=== PATIENT | male | born 1935 | race Caucasian/White ===

== ENCOUNTER 2023-05-12 16:28 | Emergency (ER) | payer OTHER, SELFPAY ==
[2023-05-12 16:33] VITALS: BP 219/99
[2023-05-12 16:52] LABS: % Basophils 0.6 % (0-2); % Eosinophils 2.1 % (0-6); % Immature Granulocytes 0.2 % (0-0.5); % Lymphocytes 32.9 % (20.5-51.1); % Neutrophils 56.2 % (42.2-75.2); Absolute Eosinophils 0.1 10^3/uL (0-0.7); Absolute Lymphocytes 2.2 10^3/uL (1.2-3.4); Absolute Monocytes 0.5 10^3/uL (0.1-0.6); Absolute Neutrophils 3.7 10^3/uL (1.4-6.5); Hematocrit 41.1 % (39.0-52.0); Mean Corp Hgb Conc. 34.1 g/dL (33.0-37.0); Mean Corpuscular Hgb 32.9 pg (27.0-31.0); Mean Corpuscular Volume 96.7 fL (80.0-94.0); Mean Platelet Volume 9.4 fL (7.4-10.4); Nucleated Red Blood Cells % 0 % (-); Platelet Count 204 10^3/uL (130-400); Red Blood Cell Count 4.25 10^6/uL (4.70-6.10); Red Cell Dist. Width 13.2 % (11.5-14.5); White Blood Cell Count 6.5 10^3/uL (4.8-10.8)
[2023-05-12 17:09] LABS: ALT (SGPT) 32 U/L (0-50); AST (SGOT) 48 U/L (17-59); Albumin 4.5 g/dl (3.5-5.0); Alkaline Phosphatase 75 U/L (38-126); Blood Urea Nitrogen 27 mg/dl (9-20); Calcium 9.6 mg/dl (8.4-10.2); Carbon Dioxide 30 mmol/L (22-30); Chloride 102 mmol/L (98-107); Estimated Creatinine Clearance 56 ml/min; Glucose 79 mg/dl (70-99); Potassium 4.1 mmol/L (3.5-5.1); Sodium 138 mmol/L (135-145); Total Bilirubin 0.8 mg/dl (0.2-1.3); Total Protein 7.1 g/dl (6.3-8.2); eGFR > 60.00
[2023-05-12 17:20] LABS: Troponin I 0.016 ng/ml
[2023-05-12 18:09] VITALS: BP 212/109
[2023-05-12 19:00] VITALS: BP 200/91
--- NOTE | 2023-05-12 19:17 | ED.GENMED ---
History of Present Illness
General
Chief Complaint: Blood Pressure Problem
Source: patient
Exam Limitations: none
Time Seen by Provider: 05/12/23 18:41
Travel History
Have you had any contact with someone who has COVID-19?: No
Do you have any symptoms of coronavirus? Fever > 100 degrees, chills, cough, shortness of breath, sore throat, loss of taste or smell, muscle aches, or headache?: No
History of Present Illness
History of Present Illness:
This is a 87 year old male that comes in with c/o hypertension. States that today his BP was elevated and he felt a little weak.States that he also has urinary frequency. States that he also felt lightheaded. Denies any fever, chills chest pain,
SOB, abd pain, nausea, vomiting, diarrhea, headache, dizziness, urinary burning.
Past History
Past History
ED Past Medical History: Cancer, HTN, Hypercholesterolemia and Other
ED Past Surgical History: Tonsilectomy and Other (cataracts, Left hernia)
Social History
Tobacco: Former smoker
Alcohol: None
Personal:
Living: snf ([facility])
Review of Systems
Review of Systems
All Other Systems: ROS reviewed and negative except as documented in HPI and ROS
Constitutional: Reports no symptoms; Denies fever or chills
EENT: Reports no symptoms
Respiratory: Reports no symptoms; Denies cough or trouble breathing
Cardiac: Reports no symptoms; Denies chest pain
ABD/GI: Reports no symptoms; Denies abdominal pain, nausea, vomiting or diarrhea
: Reports frequency and urgency; Denies dysuria
Musculoskeletal: Reports no symptoms
Skin: Reports no symptoms
Neurological: Reports other (Lightheaded); Denies dizzy or headache
Psychiatric: Reports no symptoms
Phy Exam
General Physical Exam
General Presentation: well appearing and no apparent distress
General age: appears stated age
General Skin: warm and dry
General Habitus: elderly
General Mental: alert
General Hydration: appears well hydrated
ENT Exam
ENT Exam: TM's normal, pharynx normal and neck supple
Eye Exam
Eye Exam: EOMI
Cardiovascular Exam
Cardiovascular Exam: regular rate/rhythm and normal peripheral pulses
Pulmonary Exam
Pulmonary Exam: lungs clear, no respiratory distress, no rales, chest non tender, no crackles, no rhonchi, no wheezing and no cough
Gastrointestinal Exam
Gastrointestinal Exam: normal bowel sounds, non tender, soft, no organomegaly, no pulsatile mass and non distended
Musculoskeletal Exam
Musculoskeletal Exam: full ROM and edema (Slight ankle edema nonpitting)
Skin Exam
Skin Exam: normal color, warm/dry, no rash and no petechia
Psychiatric Exam
Psychiatric Exam: normal mood/affect
Course
Orders/Labs/Results
Orders:
Orders
05/12/23 16:32
Electrocardiogram (*1) Urgent
Reason for Study: Chest Pain
Cardiac Monitoring- Treatment ONCE
EKG- Treatment ONCE
IV Insert/Care/Rem.- Treatment PRN
O2 Therapy [RESP] Urgent
Titrate/Wean O2 to maintain O2 sat greater than (%): 90
Special Instructions: Maintain sats >/=90%
Pulse Ox/spot Check [RESP] Urgent
Quantity: 1
Special Instructions: ON ROOM AIR
05/12/23 16:41
Complete Blood Count/With Diff Urgent
Comprehensive Metabolic Panel Urgent
Troponin I Urgent
05/12/23 19:17
HydrALAZINE [Apresoline] 5 mg IV NOW STA
05/12/23 19:31
Troponin I Urgent
Urinalysis Reflex To Culture Urgent
Date Specimen was Collected: 05/12/23
Time Specimen was Collected: 19:21
05/12/23 20:35
Lisinopril [Zestril] 10 mg PO NOW STA
Abnormal Lab Results
05/12/23
16:41
RBC 4.25 L 10^6/uL
(4.70-6.10)
MCV 96.7 H fL
(80.0-94.0)
MCH 32.9 H pg
(27.0-31.0)
BUN 27 H mg/dl
(9-20)
05/12/23 16:41
05/12/23 16:41
Dehydration. Troponin 0.016, Urine negative for infection.
Vital Signs
Initial and Last Documented VS:
Initial Vital Signs
Temp Pulse Resp
98.1 F 76 18
05/12/23 16:31 05/12/23 16:31 05/12/23 16:31
Last Documented Vital Signs
Temp Pulse Resp BP Pulse Ox
98.1 F 69 18 188/80 95
05/12/23 16:31 05/12/23 20:30 05/12/23 20:30 05/12/23 20:00 05/12/23 20:30
MDM/Problems Addressed
Differential Diagnosis Includes:
Hypertension,
MDM/Problems Addressed:
This is a 87 year old male that comes in with c/o hypertension. States that today his BP was elevated so they sent him in.
Will check labs and give Hypertensive medication.
back into see patient. Patient has no complaints. Patient BP at this time is 188/80. Will start patient on Lisinopril 10mg daily and patient can follow up with the family doctor. This may need to be increased depending on pateint response. Will
discharge Back to [facility].
Chronic conditions affecting care:
NA
Acute Exacerbation and/or Progression of Chronic Illness:
NA
*Pulse Oximetry
Patient hypoxic: no
*EKG
Interpreted by ED Provider?: Yes
Heart Rate: 64
Rate: normal
Rhythm: sinus and PAC's
[place]: normal axis
Interval: normal interval
QRS Pattern: normal QRS
Ischemia: no ischemia
*Extrusion Technician Interpretation
Rate: normal
Heart Rate: 94
Rhythm: sinus
*Critical Care Note
Total Time (30-74mins, 75-104mins- exclusive of procedures): Not Applicable
ED Attending Note
-
Portions of this chart may have been created with voice recognition software.� Occasional wrong word or��sound alike� substitutions may have occurred due to the inherent limitations of voice recognition software.
Discharge Plan
Departure
Patient Disposition: Home (Routine Discharge)
Patient with high blood pressure during this ER visit?: Yes
Condition: Good
Covid-19: Not Applicable
Discharge Problem:
Hypertension
Instructions: High Blood Pressure (DC), BLOOD PRESSURE
Prescriptions:
New
lisinopril 10 mg tablet
10 mg PO DAILY Qty: 15 0RF
No Action
ascorbic acid (vitamin C) [Vitamin C] 500 MG tablet
500 mg PO DAILY
magnesium oxide 500 MG tablet
500 mg PO DAILY
rosuvastatin [Crestor] 40 MG tablet
40 mg PO QPM
lutein 40 MG capsule
40 mg PO DAILY
cyanocobalamin (vitamin B-12) 1,000 MCG tablet
1,000 mcg PO DAILY
cholecalciferol (vitamin D3) 2,000 UNITS tablet
2,000 units PO DAILY
multivitamin with folic acid [Tab-A-Anne] 1 TABLET tablet
1 tab PO DAILY
sennosides-docusate sodium 1 TABLET tablet
1 tab PO BID 0RF
aspirin 81 mg Tablet,Chewable
81 mg PO DAILY
furosemide 20 mg tablet
20 mg PO MOWEFR
acetaminophen 325 MG tablet
650 mg PO Q6H PRN (Reason: mild pain/fever)
Referrals:
UNKNOWN - PT DOES,NOT KNOW [Family Provider] -
Activity Restrictions/Additional Instructions:
As discussed, patient blood work shows slight Dehydration. His Urine is negative for any infection. Patient has been given Medication here that helped to decrease his BP. You have also been given a prescription for Hypertension daily. Please have
patient follow up with the family doctor for recheck in the next 2-3 days and if needed he can increase his Medication to help control his BP. IF YOU HAVE ANY OTHER CONCERNS PLEASE RETURN TO THE EMERGENCY ROOM.
Interventions
Interventions:
*Risk Screen - Suicide Last Done: 05/12/23 16:57
*General Assessment Last Done: 05/12/23 16:57
*Neglect/Abuse Screening Last Done: 05/12/23 16:57
ED- Fall Risk Assessment Last Done: 05/12/23 16:42
*ED COVID-19 Vaccine History Last Done: 05/12/23 16:33
*Nursing Disposition Last Done: 05/12/23 19:33
ED- Cardiac Assessment Last Done: 05/12/23 16:42
ED- Neurological Assessment Last Done: 05/12/23 16:42
ED- Pulmonary Assessment Last Done: 05/12/23 16:42
[2023-05-12] MEDS: APRESOLINE 5 MG IV (19:27)
[2023-05-12 19:51] LABS: Urine Albumin Negative (Neg - Trace); Urine Bilirubin Negative (Negative); Urine Character Clear (Clear); Urine Color Yellow; Urine Glucose Negative (Negative); Urine Ketone Negative (Negative); Urine Leukocyte Negative (Negative); Urine Nitrite Negative (Negative); Urine Occult Blood Negative (Negative); Urine Specific Gravity 1.015 (<1.030); Urine Urobilinogen Negative (Neg - 1+)
[2023-05-12 20:00] VITALS: BP 188/80
[2023-05-12] MEDS: ZESTRIL 10 MG PO (20:46)
--- NOTE | 2023-05-14 14:29 | CM ---
Benjamin from [facility] requesting ED report. KEVIN faxed to [facility].
== END 2023-05-12 21:43 | disposition home or self-care (01) ==
LOC: EMR 16:28
PROVIDERS: Clinical Nurse Specialist Family Health; Emergency Medicine; EMERGENCY PHYSICIAN Emergency Medicine
DX: I10 Essential (primary) hypertension (principal); Z87.891 Personal history of nicotine dependence
CPT/HCPCS: 99284; 96374; 80053; 81003; 84484; 85025; 93005

== ENCOUNTER → 2023-07-01 09:32 | Outpatient (REF) | payer OTHER, SELFPAY ==
[2023-07-01 11:29] LABS: % Eosinophils 4.9 % (0-6); % Monocytes 10.7 % (1.7-9.3); % Neutrophils 49.4 % (42.2-75.2); Absolute Eosinophils 0.2 10^3/uL (0-0.7); Absolute Lymphocytes 1.3 10^3/uL (1.2-3.4); Absolute Monocytes 0.4 10^3/uL (0.1-0.6); Absolute Neutrophils 1.9 10^3/uL (1.4-6.5); Mean Corp Hgb Conc. 33.3 g/dL (33.0-37.0); Mean Corpuscular Hgb 33.3 pg (27.0-31.0); Mean Platelet Volume 10.1 fL (7.4-10.4); Nucleated Red Blood Cells % 0 % (-); Platelet Count 178 10^3/uL (130-400); Red Cell Dist. Width 13.4 % (11.5-14.5); White Blood Cell Count 3.9 10^3/uL (4.8-10.8)
[2023-07-01 11:44] LABS: ALT (SGPT) 21 U/L (0-50); AST (SGOT) 31 U/L (17-59); Albumin 3.5 g/dl (3.5-5.0); Alkaline Phosphatase 59 U/L (38-126); Blood Urea Nitrogen 25 mg/dl (9-20); Calcium 9.1 mg/dl (8.4-10.2); Carbon Dioxide 29 mmol/L (22-30); Chloride 107 mmol/L (98-107); Glucose 86 mg/dl (70-99); Magnesium 2.3 mg/dl (1.6-2.3); Potassium 4.4 mmol/L (3.5-5.1); Sodium 137 mmol/L (135-145); Total Bilirubin 0.3 mg/dl (0.2-1.3); Total Protein 5.7 g/dl (6.3-8.2); eGFR > 60.00
[2023-07-01 14:52] LABS: PSA, Total - Screen 0.31 ng/ml (0.0-4.0)
== END ==
LOC: OLABMERCHI 09:32
PROVIDERS: ATTENDING PHYSICIAN Nurse Practitioner Gerontology; FAMILY PHYSICIAN Hospitalist
DX: D64.9 Anemia, unspecified (principal); R94.4 Abnormal results of kidney function studies; E83.42 Hypomagnesemia; C61 Malignant neoplasm of prostate
CPT/HCPCS: 36415; 80053; 83735; 85025; G0103

== ENCOUNTER 2023-07-16 16:17 | Emergency (ER) | payer OTHER, SELFPAY ==
[2023-07-16 16:30] VITALS: BP 152/80
[2023-07-16 17:14] VITALS: BP 180/83
--- NOTE | 2023-07-16 17:18 | ED.GENMED ---
History of Present Illness
General
Chief Complaint: Blood Pressure Problem
Source: patient
Exam Limitations: none
Time Seen by Provider: 07/16/23 17:01
Nursing documentation reviewed up to this point in time: agreed with
Travel History
Have you had any contact with someone who has COVID-19?: No
Do you have any symptoms of coronavirus? Fever > 100 degrees, chills, cough, shortness of breath, sore throat, loss of taste or smell, muscle aches, or headache?: No
History of Present Illness
History of Present Illness:
Patient to ED for eval of elevated blood pressure readings. States he started on blood pressure medication approx 1 month ago. Blood pressure is intermittently high at times. BP reading ths AM was 200/100. Transported to ED via EMS. He has no
complaints.
Past History
Past History
ED Past Medical History: Cancer, HTN, Hypercholesterolemia and Other
ED Past Surgical History: Tonsilectomy and Other (cataracts, Left hernia)
Social History
Tobacco: Former smoker
Alcohol: None
Personal:
Living: skilled nursing ([facility])
Review of Systems
Review of Systems
Allergies reviewed?: Yes
All Other Systems: ROS reviewed and negative except as documented in HPI and ROS
Constitutional: Reports no symptoms
EENT: Reports no symptoms
Respiratory: Reports no symptoms
Cardiac: Reports no symptoms (Sent to ED for elevated BP readings.)
ABD/GI: Reports no symptoms
: Reports no symptoms
Musculoskeletal: Reports no symptoms
Skin: Reports no symptoms
Neurological: Reports no symptoms
Hematologic/Lymphatic: Reports no symptoms
Phy Exam
General Physical Exam
General Presentation: well appearing and no apparent distress
General age: appears stated age
General Skin: warm and dry
General Habitus: normal
General Mental: alert
Cardiovascular Exam
Cardiovascular Exam: regular rate/rhythm and no edema
Pulmonary Exam
Pulmonary Exam: lungs clear and no respiratory distress
Gastrointestinal Exam
Gastrointestinal Exam: normal bowel sounds, non tender, soft and no organomegaly
Musculoskeletal Exam
Musculoskeletal Exam: full ROM and neuro vasc intact
Skin Exam
Skin Exam: normal color, warm/dry and no rash
Psychiatric Exam
Psychiatric Exam: normal mood/affect
Course
Orders/Labs/Results
Orders:
Orders
07/16/23 16:34
ECG [Electrocardiogram (*1)] Urgent
Reason for Study: Vertigo / Dizzy
EKG- Treatment ONCE
07/16/23 17:30
Complete Blood Count/With Diff Urgent
Comprehensive Metabolic Panel Urgent
Troponin I Urgent
07/16/23 17:49
Urinalysis Reflex To Culture Urgent
Date Specimen was Collected: 07/16/23
Time Specimen was Collected: 17:44
Abnormal Lab Results
07/16/23
17:30
RBC 4.32 L 10^6/uL
(4.70-6.10)
MCV 95.6 H fL
(80.0-94.0)
MCH 32.6 H pg
(27.0-31.0)
Neutrophils % 75.3 H %
(42.2-75.2)
Lymphocytes % 17.4 L %
(20.5-51.1)
Carbon Dioxide 31 H mmol/L
(22-30)
BUN 26 H mg/dl
(9-20)
07/16/23 17:30
07/16/23 17:30
Vital Signs
Initial and Last Documented VS:
Initial Vital Signs
Temp Pulse Resp BP Pulse Ox
98.3 F 76 20 152/80 99
07/16/23 16:30 07/16/23 16:30 07/16/23 16:30 07/16/23 16:30 07/16/23 16:30
Last Documented Vital Signs
Temp Pulse Resp BP Pulse Ox
98.3 F 65 14 173/77 95
07/16/23 16:30 07/16/23 18:30 07/16/23 18:30 07/16/23 18:00 07/16/23 18:30
*Critical Care Note
Total Time (30-74mins, 75-104mins- exclusive of procedures): Not Applicable
Update Note
Update Note:
BP maintaining 160-170/70-80. He remains asymptomatic. WIll increase lisinopril to 20mg daily. He is discharged home. Given instructions on s/s to return to ED and he is agreeable to plan. Case discussed with dr. paul.
ED Attending Note
-
Portions of this chart may have been created with voice recognition software.� Occasional wrong word or��sound alike� substitutions may have occurred due to the inherent limitations of voice recognition software.
Discharge Plan
Departure
Patient Disposition: Home (Routine Discharge)
Date of Disposition: 07/16/23
Time of Disposition: 18:47
Patient with high blood pressure during this ER visit?: No
Condition: Good
Covid-19: Not Applicable
Discharge Problem:
Elevated blood pressure reading
Instructions: High Blood Pressure (DC)
Prescriptions:
New
lisinopril 20 mg tablet
20 mg PO DAILY Qty: 14 0RF
No Action
ascorbic acid (vitamin C) [Vitamin C] 500 MG tablet
500 mg PO DAILY
magnesium oxide 500 MG tablet
500 mg PO DAILY
rosuvastatin [Crestor] 40 MG tablet
40 mg PO QPM
lutein 40 MG capsule
40 mg PO DAILY
cyanocobalamin (vitamin B-12) 1,000 MCG tablet
1,000 mcg PO DAILY
cholecalciferol (vitamin D3) 2,000 UNITS tablet
2,000 units PO DAILY
multivitamin with folic acid [Tab-A-Anne] 1 TABLET tablet
1 tab PO DAILY
sennosides-docusate sodium 1 TABLET tablet
1 tab PO BID 0RF
aspirin 81 mg Tablet,Chewable
81 mg PO DAILY
furosemide 20 mg tablet
20 mg PO MOWEFR
acetaminophen 325 MG tablet
650 mg PO Q6H PRN (Reason: mild pain/fever)
lisinopril 10 mg tablet
10 mg PO DAILY Qty: 15 0RF
Referrals:
Naty Ruiz, [Family Provider] - Follow up in 2-3 days
Activity Restrictions/Additional Instructions:
Increase your Lisinopril to 20mg daily. Have your blood pressure rechecked next week.
Interventions
Interventions:
*Risk Screen - Suicide Last Done: 07/16/23 18:15
*General Assessment Last Done: 07/16/23 18:13
*Neglect/Abuse Screening Last Done: 07/16/23 18:13
*ED COVID-19 Vaccine History Last Done: 07/16/23 16:30
ED- Cardiac Assessment Last Done: 07/16/23 18:15
ED- Neurological Assessment Last Done: 07/16/23 18:15
ED- Pulmonary Assessment Last Done: 07/16/23 18:15
Discharge Date and Time
Print Language: MONTSERRATIAN
[2023-07-16 17:39] LABS: % Basophils 0.4 % (0-2); % Eosinophils 0.5 % (0-6); % Immature Granulocytes 0.3 % (0-0.5); % Lymphocytes 17.4 % (20.5-51.1); % Monocytes 6.1 % (1.7-9.3); % Neutrophils 75.3 % (42.2-75.2); Absolute Lymphocytes 1.3 10^3/uL (1.2-3.4); Absolute Monocytes 0.5 10^3/uL (0.1-0.6); Absolute Neutrophils 5.8 10^3/uL (1.4-6.5); Hematocrit 41.3 % (39.0-52.0); Hemoglobin 14.1 g/dL (13.0-18.0); Mean Corp Hgb Conc. 34.1 g/dL (33.0-37.0); Mean Corpuscular Hgb 32.6 pg (27.0-31.0); Mean Corpuscular Volume 95.6 fL (80.0-94.0); Mean Platelet Volume 9.2 fL (7.4-10.4); Nucleated Red Blood Cells % 0 % (-); Platelet Count 192 10^3/uL (130-400); Red Blood Cell Count 4.32 10^6/uL (4.70-6.10); Red Cell Dist. Width 13.1 % (11.5-14.5); White Blood Cell Count 7.7 10^3/uL (4.8-10.8)
[2023-07-16 17:49] VITALS: BP 179/74
[2023-07-16 17:55] LABS: ALT (SGPT) 29 U/L (0-50); AST (SGOT) 39 U/L (17-59); Albumin 4.4 g/dl (3.5-5.0); Alkaline Phosphatase 71 U/L (38-126); Blood Urea Nitrogen 26 mg/dl (9-20); Carbon Dioxide 31 mmol/L (22-30); Chloride 101 mmol/L (98-107); Glucose 87 mg/dl (70-99); Potassium 4.3 mmol/L (3.5-5.1); Sodium 139 mmol/L (135-145); Total Bilirubin 0.5 mg/dl (0.2-1.3); Total Protein 6.9 g/dl (6.3-8.2); eGFR > 60.00
[2023-07-16 18:00] VITALS: BP 173/77
[2023-07-16 18:03] LABS: Troponin I 0.017 ng/ml
[2023-07-16 18:29] LABS: Urine Albumin Negative (Neg - Trace); Urine Bilirubin Negative (Negative); Urine Character Slightly Cloudy (Clear); Urine Color Yellow; Urine Glucose Negative (Negative); Urine Ketone Negative (Negative); Urine Leukocyte Negative (Negative); Urine Nitrite Negative (Negative); Urine Occult Blood Negative (Negative); Urine Urobilinogen Negative (Neg - 1+)
== END 2023-07-16 22:32 | disposition home or self-care (01) ==
LOC: EMR 16:17
PROVIDERS: Nurse Practitioner; EMERGENCY PHYSICIAN Emergency Medicine; FAMILY PHYSICIAN Hospitalist
DX: R03.0 Elevated blood-pressure reading, without diagnosis of hypertension (principal); I10 Essential (primary) hypertension; E78.00 Pure hypercholesterolemia, unspecified; Z87.891 Personal history of nicotine dependence
CPT/HCPCS: 99283; 80053; 81003; 84484; 85025; 93005

== ENCOUNTER → 2023-07-29 11:23 | Outpatient (REF) | payer OTHER, SELFPAY ==
[2023-07-29 12:10] LABS: Blood Urea Nitrogen 22 mg/dl (9-20); Calcium 9.6 mg/dl (8.4-10.2); Carbon Dioxide 32 mmol/L (22-30); Chloride 103 mmol/L (98-107); Glucose 108 mg/dl (70-99); Potassium 4.4 mmol/L (3.5-5.1); Sodium 142 mmol/L (135-145); eGFR > 60.00
== END ==
LOC: OLABMERCHI 11:23
PROVIDERS: ATTENDING PHYSICIAN Nurse Practitioner Gerontology; FAMILY PHYSICIAN Hospitalist
DX: R94.4 Abnormal results of kidney function studies (principal)
CPT/HCPCS: 36415; 80048

== ENCOUNTER → 2023-08-05 11:24 | Outpatient (REF) | payer OTHER, SELFPAY | LOC: RAD 11:24 | PROVIDERS: ATTENDING PHYSICIAN Surgery Vascular Surgery; FAMILY PHYSICIAN Hospitalist | DX: I65.29 Occlusion and stenosis of unspecified carotid artery (principal) | CPT/HCPCS: 70496; 70498; Q9967 ==

== ENCOUNTER 2023-10-31 16:19 | Inpatient (IN) | payer OTHER, SELFPAY ==
[2023-10-31] VITALS (12 sets, daily range): BP systolic 100–203; BP diastolic 57–90; BMI 21.3
--- NOTE | 2023-10-31 10:19 | ED.GENMED ---
History of Present Illness
General
Chief Complaint: Change in Mental Status
Source: patient, ambulance crew and halfway
Exam Limitations: none
Time Seen by Provider: 10/31/23 09:56
Nursing documentation reviewed up to this point in time: agreed with
History of Present Illness
History of Present Illness:
88-year-old male presenting to the emergency department from his nursing facility with concerns of increased weakness fatigue confusion this morning no specific complaints upon arrival here apparently has had some degree of back pain intermittently
as well. Denies any specific chest pain shortness of breath nausea vomiting recent illness.
Past History
Past History
ED Past Medical History: Cancer, HTN, Hypercholesterolemia and Other
ED Past Surgical History: Tonsilectomy and Other (cataracts, Left hernia)
Social History
Tobacco: Former smoker
Alcohol: None
Personal:
Living: halfway ([facility])
Review of Systems
Review of Systems
Allergies reviewed?: Yes
All Other Systems: ROS reviewed and negative except as documented in HPI and ROS
Phy Exam
Physical Exam
Physical Exam:
GENERAL: Alert , in no apparent distress
EYE: pupils equal and reactive
NECK: Supple, no significant adenopathy.
ENT: o/p clr, mmm.
CARDIAC: Regular rate and rhythm .
LUNGS: Clear breath sounds bilaterally, no acute respiratory distress, no wheezes/rales/rhonchi
ABDOMEN: Soft, without focal tenderness, no r/g, no cvat
NEUROLOGICAL: Alert and oriented, no focal neuro deficits
SKIN: Warm and dry, skin intact.
MUSCULOSKELETAL: No edema, well perfused.
PSYCH: Normal and appropriate interaction.
Course
Orders/Labs/Results
Orders:
Orders
10/31/23 09:48
Electrocardiogram (*1) Urgent
Reason for Study: Chest Pain
EKG- Treatment ONCE
10/31/23 09:59
Complete Blood Count/With Diff Urgent
Comprehensive Metabolic Panel Urgent
10/31/23 10:21
Lisinopril [Zestril] 20 mg PO NOW STA
10/31/23 10:25
Troponin I Urgent
10/31/23 11:04
0.9% Sodium Chloride 500 ml [Nss] 500 ml IV BOLUS
10/31/23 11:17
Urinalysis Reflex To Culture Urgent
Date Specimen was Collected: 10/31/23
Time Specimen was Collected: 11:16
10/31/23 13:35
Chest [CR Chest - 2 Views ] Urgent
Comment:
Reason For Exam: fever
10/31/23 13:36
COVID-19 Antigen Urgent
Source: Nasal Swab
10/31/23 13:55
Acetaminophen [Tylenol] 650 mg PO NOW STA
10/31/23 14:15
Blood Culture Urgent
SANDY Source: Blood/Venous
Specimen Description:
10/31/23 14:35
Azithromycin 500 mg/250 ml [Zithromax Infusion] 500 mg in 250 ml IV NOW
CefTRIAXone [Rocephin] 1,000 mg IV NOW STA
Abnormal Lab Results
10/31/23 10/31/23
09:59 11:17
WBC 14.1 H 10^3/uL
(4.8-10.8)
RBC 4.69 L 10^6/uL
(4.70-6.10)
MCV 94.2 H fL
(80.0-94.0)
MCH 32.4 H pg
(27.0-31.0)
Abs Immat Gran (auto) 0.1 H 10^3/uL
(0-0.05)
Absolute Neuts (auto) 12.4 H 10^3/uL
(1.4-6.5)
Absolute Lymphs (auto) 0.8 L 10^3/uL
(1.2-3.4)
Absolute Monos (auto) 0.8 H 10^3/uL
(0.1-0.6)
Immature Gran % 0.6 H %
(0-0.5)
Neutrophils % 88.0 H %
(42.2-75.2)
Lymphocytes % 5.5 L %
(20.5-51.1)
BUN 25 H mg/dl
(9-20)
Glucose 159 H mg/dl
(70-99)
Urine Ketones Trace A
(Negative)
10/31/23 09:59
10/31/23 09:59
Vital Signs
Initial and Last Documented VS:
Initial Vital Signs
Temp Pulse Resp BP Pulse Ox
99.6 F 100 20 203/90 95
10/31/23 09:49 10/31/23 09:49 10/31/23 09:49 10/31/23 09:49 10/31/23 09:49
Last Documented Vital Signs
Temp Pulse Resp BP Pulse Ox
101.9 F H 110 24 169/89 94
10/31/23 13:38 10/31/23 13:00 10/31/23 13:00 10/31/23 13:00 10/31/23 12:00
MDM/Problems Addressed
MDM/Problems Addressed:
88-year-old male presenting to the emergency department today with concerns increasing weakness confusion today blood pressure was also noted to be elevated. He did not take his morning blood pressure meds. Has had some intermittent back pain he
claims this is chronic denies any current discomfort. No current symptoms while here in the ER. Initially with heart rate of around 100 and elevated blood pressure but improving without specific treatment 155/87. Patient given his home dose of
lisinopril temperature of 101.9 heart rate of 110. Labs unremarkable chest x-ray with potential pneumonia read by radiology was started on antibiotics otherwise will be admitted for further monitoring concerning febrile tachycardic meeting SIRS
criteria.
*Critical Care Note
Total Time (30-74mins, 75-104mins- exclusive of procedures): Not Applicable
ED Attending Note
-
Portions of this chart may have been created with voice recognition software.� Occasional wrong word or��sound alike� substitutions may have occurred due to the inherent limitations of voice recognition software.
Discharge Plan
Departure
Patient Disposition: Admit
Date of Disposition: 10/31/23
Time of Disposition: 15:31
Admit to: Med/Surg
Admit to doctor: Shazia
Presentation/result/management discussed w/ accepting MD/DO: Hospitalist
Patient with high blood pressure during this ER visit?: No
Condition: Good
Covid-19: Not Applicable
Discharge Problem:
Pneumonia
Prescriptions:
No Action
ascorbic acid (vitamin C) [Vitamin C] 500 MG tablet
500 mg PO DAILY
magnesium oxide 500 MG tablet
500 mg PO DAILY
rosuvastatin [Crestor] 40 MG tablet
40 mg PO HS
lutein 40 MG capsule
40 mg PO DAILY
cyanocobalamin (vitamin B-12) 1,000 MCG tablet
1,000 mcg PO DAILY
cholecalciferol (vitamin D3) 2,000 UNITS tablet
2,000 units PO DAILY
multivitamin with folic acid [Tab-A-Anne] 1 TABLET tablet
1 tab PO DAILY
aspirin 81 mg Tablet,Chewable
81 mg PO DAILY
furosemide 20 mg tablet
20 mg PO MOWEFR
acetaminophen 325 MG tablet
650 mg PO Q6H PRN (Reason: mild pain/fever)
lisinopril 20 mg tablet
20 mg PO DAILY Qty: 14 0RF
acetaminophen 325 mg Tablet
650 mg PO BID
sennosides-docusate sodium [Senna-S] 8.6-50 mg Tablet
1 tab-cap PO DAILY
Referrals:
Naty Ruiz DO [Family Provider] -
Interventions
Interventions:
*Risk Screen - Suicide Last Done: 10/31/23 09:49
*General Assessment Last Done: 10/31/23 09:49
*Neglect/Abuse Screening Last Done: 10/31/23 09:49
ED- Pulmonary Assessment Last Done: 10/31/23 09:45
ED- Neurological Assessment Last Done: 10/31/23 09:45
ED- Cardiac Assessment Last Done: 10/31/23 09:45
Discharge Date and Time
Print Language: ALBANIAN
[2023-10-31 10:21] LABS: % Basophils 0.3 % (0-2); % Eosinophils 0.1 % (0-6); % Immature Granulocytes 0.6 % (0-0.5); % Lymphocytes 5.5 % (20.5-51.1); % Monocytes 5.5 % (1.7-9.3); Absolute Immature Granulocytes 0.1 10^3/uL (0-0.05); Absolute Lymphocytes 0.8 10^3/uL (1.2-3.4); Absolute Monocytes 0.8 10^3/uL (0.1-0.6); Absolute Neutrophils 12.4 10^3/uL (1.4-6.5); Hematocrit 44.2 % (39.0-52.0); Hemoglobin 15.2 g/dL (13.0-18.0); Mean Corp Hgb Conc. 34.4 g/dL (33.0-37.0); Mean Corpuscular Hgb 32.4 pg (27.0-31.0); Mean Corpuscular Volume 94.2 fL (80.0-94.0); Mean Platelet Volume 9.4 fL (7.4-10.4); Nucleated Red Blood Cells % 0 % (-); Platelet Count 176 10^3/uL (130-400); Red Blood Cell Count 4.69 10^6/uL (4.70-6.10); Red Cell Dist. Width 13.2 % (11.5-14.5); White Blood Cell Count 14.1 10^3/uL (4.8-10.8)
[2023-10-31 10:27] LABS: ALT (SGPT) 21 U/L (0-50); AST (SGOT) 36 U/L (17-59); Albumin 4.6 g/dl (3.5-5.0); Alkaline Phosphatase 74 U/L (38-126); Blood Urea Nitrogen 25 mg/dl (9-20); Calcium 9.8 mg/dl (8.4-10.2); Carbon Dioxide 28 mmol/L (22-30); Chloride 102 mmol/L (98-107); Estimated Creatinine Clearance 53 ml/min; Glucose 159 mg/dl (70-99); Potassium 4.1 mmol/L (3.5-5.1); Sodium 141 mmol/L (135-145); eGFR > 60.00
[2023-10-31] MEDS: ZESTRIL 20 MG PO (10:27)
[2023-10-31 11:01] LABS: Troponin I < 0.012 ng/ml
[2023-10-31] MEDS: NSS 500 IV (11:19)
[2023-10-31 11:27] LABS: Urine Albumin Negative (Neg - Trace); Urine Bilirubin Negative (Negative); Urine Character Clear (Clear); Urine Color Yellow; Urine Glucose Negative (Negative); Urine Ketone Trace (Negative); Urine Leukocyte Negative (Negative); Urine Nitrite Negative (Negative); Urine Occult Blood Negative (Negative); Urine Specific Gravity 1.015 (<1.030); Urine Urobilinogen Negative (Neg - 1+)
[2023-10-31 13:52] LABS: COVID-19 Antigen Negative (Negative)
[2023-10-31] MEDS: TYLENOL 650 MG PO (14:15)
[2023-10-31] MEDS: ZITHROMAX INFUSION 250 IV (14:55)
[2023-10-31] MEDS: ROCEPHIN 1000 MG IV (14:55)
--- NOTE | 2023-10-31 15:42 | HPS.HSE ---
Family Physician
-
Family Physician: Naty Ruiz, DO
Chief Complaint
-
Change in mental status
History of Present Illness
88-year-old male from [facility] with increased lethargy fatigue . Pt He also had a fever
Medical History
Past Medical History
Past Medical History: Reports Other
Additional Past Medical History:
Hyperlipidemia, Peripheral artery disease, Coronary artery disease, Enlarged prostate, Hypothyroidism?, Arthritis, Hypertension
Past Surgical History: Reports Other
Additional Past Surgical History:
Mohs surgery had back and face, tonsillectomy, cataract surgery, left inguinal hernia
Social History
Tobacco: Former Smoker
Alcohol: None
Drug: None
Personal: Single
Family History
Family History: Not pertinent
Allergies / Home Medications
Allergies reflects when Allergies were last updated in [facility].
Home Medications with original date entered in [facility]
Allergy/Medication List:
Allergies
Allergy/AdvReac Type Severity Reaction Status Date / Time
finasteride Allergy joint Verified 10/31/23 09:55
soreness
Home Medications
ascorbic acid (vitamin C) 500 mg tablet (Vitamin C) 500 mg PO DAILY Supplement 12/17/16
magnesium oxide 500 mg PO DAILY Supplement 12/27/20
rosuvastatin 40 mg tablet (Crestor) 40 mg PO HS High cholesterol 12/27/20
lutein 40 mg capsule 40 mg PO DAILY Supplement 04/10/21
cholecalciferol (vitamin D3) 50 mcg (2,000 unit) tablet 2,000 units PO DAILY Supplement 06/13/21
cyanocobalamin (vitamin B-12) 1,000 mcg tablet 1,000 mcg PO DAILY Supplement 06/13/21
multivitamin with folic acid 400 mcg tablet (Tab-A-Anne) 1 tab PO DAILY Supplement 06/13/21
acetaminophen 325 mg tablet 650 mg PO Q6H PRN mild pain/fever 05/12/23
aspirin 81 mg chewable tablet 81 mg PO DAILY 05/12/23
furosemide 20 mg tablet 20 mg PO MOWEFR 05/12/23
lisinopril 20 mg tablet 20 mg PO DAILY #14 tabs 07/16/23
acetaminophen 325 mg tablet 650 mg PO BID 10/31/23
sennosides 8.6 mg-docusate sodium 50 mg tablet (Senna-S) 1 tab-cap PO DAILY 10/31/23
Review of Systems
-
A 12 point ROS was completed and negative except as noted: Yes
Respiratory: Reports Cough; Denies Trouble Breathing
Cardiac: Denies Chest Pain
Abdomen/GI: Denies Abdominal Pain
: Denies Dysuria
Physical Exam
Vital Signs
Vital Signs
Temp Pulse Resp BP Pulse Ox
101.9 F H 110 24 169/89 94
10/31/23 13:38 10/31/23 13:00 10/31/23 13:00 10/31/23 13:00 10/31/23 12:00
Physical Exam
General: Comfortable
Respiratory: Rales
Cardiac: S1/S2 and Regular Rhythm
GI: Soft and Normal Bowel Sounds
Musculoskeletal: No Edema
Neuro: Awake, Alert, No Motor Deficits and Cranial Nerves Intact
Psych: Calm
Laboratory Results
-
10/31/23 09:59
10/31/23 09:59
Laboratory Results
Total Bilirubin 1.0 mg/dl (0.2-1.3) 10/31/23 09:59
AST 36 U/L (17-59) 10/31/23 09:59
ALT 21 U/L (0-50) 10/31/23 09:59
Alkaline Phosphatase 74 U/L (38-126) 10/31/23 09:59
Troponin I < 0.012 ng/ml 10/31/23 10:25
Data Reviewed
-
Diagnostic Radiology: Image Personally Visualized and interpreted (Chest x-ray reviewed by me right upper lobe infiltrate)
Medical Tests (Nuc Med, Echo, EKG etc): Image Personally Visualized and interpreted (EKG reviewed by me-normal sinus rhythm, LBBB, T inversion inferior leads)
Impression/Plan
-
IMPRESSION/PLAN:
# Right upper lobe infiltrate-treat as pneumonia with fever
Blood cultures obtained
[id number]
Speech evaluation to rule out aspiration.
Patient has a history of 4.5 into 205.5 cm nodular area in the parenchymal airspace in the medial aspect of the right upper lobe on a CT from 04/01/2021
Will proceed with a CT scan of the chest in am
Continue ceftriaxone and Zithromax
# TME likely secondary to above- seems to be improving.
# Hyperlipidemia/atherosclerosis-continue statin
# Hypertension-Continue lisinopril
# Hypothyroidism listed in the medical history however I do not see Synthroid listed on medicines list. Check TSH with T4- POA doesn't know.
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
# PAD-History of right carotid endarterectomy. 60% narrowing of the mid left common carotid artery-continue aspirin and statin. Follows with Dr. Painter
# Nephrolithiasis
# DVT prophylaxis-Lovenox
# CODE STATUS- DNR Per pt and POA
Spoke to VIRA Silveira and updated.
[2023-10-31] MEDS: LOVENOX 40 MG SC (18:24)
[2023-10-31] MEDS: CRESTOR 40 MG PO (21:43)
[2023-11-01 06:39] LABS: Hematocrit 37.5 % (39.0-52.0); Hemoglobin 12.8 g/dL (13.0-18.0); Mean Corp Hgb Conc. 34.1 g/dL (33.0-37.0); Mean Corpuscular Hgb 32.6 pg (27.0-31.0); Mean Corpuscular Volume 95.4 fL (80.0-94.0); Mean Platelet Volume 9.6 fL (7.4-10.4); Platelet Count 154 10^3/uL (130-400); Red Blood Cell Count 3.93 10^6/uL (4.70-6.10); Red Cell Dist. Width 13.4 % (11.5-14.5); White Blood Cell Count 19.9 10^3/uL (4.8-10.8)
--- NOTE | 2023-11-01 06:51 | W.PN.HOSP.TC ---
Today's Communication/Plan
-
cont abx, ceftriaxone replaced with zosyn
repeat blood cultures
blood pressure control
monitor temps, trend wbc
Assessment / Plan
Assessment / Plan
Physical Exam
General: Comfortable
Respiratory: Clear to auscultation bilateral stable respiratory status room air
Cardiac: S1/S2 and Regular Rhythm
GI: Soft and Normal Bowel Sounds
Musculoskeletal: No Edema
Neuro: AOx2 disoriented to time conversant and coherent
Psych: Calm
88M [facility] HLD HTN Osteoporosis PAD Right Carotid Endarterectomy here for sepsis pna
# Right upper lobe infiltrate-treat as pneumonia with fever
#Sepsis PNA (fever leukocytosis)
#Bacteremia
Blood cultures prelim positive for gram neg bacilli, blood cultures repeated
[id number]
Speech evaluation to rule out aspiration.
Patient has a history of 4.5 into 205.5 cm nodular area in the parenchymal airspace in the medial aspect of the right upper lobe on a CT from 04/01/2021
CT chest appreciated
Continue Zithromax, ceftriaxone replaced with zosyn
# TME likely secondary to above- resolving/possibly baseline at this time.
# Hyperlipidemia/atherosclerosis
continue statin
# Hypertension
Continue lisinopril
# Hypothyroidism ruled out
TSH wnl euthyroid off thyroid supplementation
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
# PAD-History of right carotid endarterectomy. 60% narrowing of the mid left common carotid artery-continue aspirin and statin. Follows with Dr. Painter
# Nephrolithiasis
# DVT prophylaxis-Lovenox
# CODE STATUS- DNR
I spent a total of 50 minutes with the patient or on the floor. More than 50% of this time involved counseling and coordination of care.
Anticipated Discharge: 24 - 48 hours
Subjective/Interval History
-
Date of Service: November 01, 2023
AOx2 disoriented to time. Overall reports feeling well, significantly improved since start of abx. Conversant and coherent.
Objective Data
-
Labs:
Laboratory Results
11/01/23
06:23
WBC 19.9 H
Hgb 12.8 L
Hct 37.5 L
Plt Count 154
Sodium Pending
Potassium Pending
Chloride Pending
Carbon Dioxide Pending
BUN Pending
Creatinine Pending
Glucose Pending
Calcium Pending
Vital Signs:
Vital Signs
Temp Pulse Resp BP Pulse Ox
98.4 F 82 18 119/63 98
10/31/23 23:00 10/31/23 23:00 10/31/23 23:00 10/31/23 23:00 10/31/23 23:00
I&O
10/30/23 10/31/23 11/01/23
06:59 06:59 06:59
Intake Total 60 / 60
Balance 60 / 60
[2023-11-01 07:00] VITALS: BP 118/59
[2023-11-01 07:09] LABS: Blood Urea Nitrogen 32 mg/dl (9-20); Calcium 9.1 mg/dl (8.4-10.2); Carbon Dioxide 28 mmol/L (22-30); Chloride 102 mmol/L (98-107); Estimated Creatinine Clearance 47 ml/min; Glucose 131 mg/dl (70-99); Potassium 3.8 mmol/L (3.5-5.1); Sodium 140 mmol/L (135-145); eGFR > 60.00
[2023-11-01 07:38] LABS: TSH 1.14 uIU/ml (0.47-4.68)
[2023-11-01] MEDS: THERAGRAN 1 TABLET PO (08:42)
[2023-11-01] MEDS: SENOKOT-S 1 TABLET PO (08:42)
[2023-11-01] MEDS: MAGNESIUM OXIDE 500 MG PO (08:42)
[2023-11-01] MEDS: ZITHROMAX 500 MG PO (08:43)
[2023-11-01] MEDS: LOW STRENGTH ASPIRIN 81 MG PO (08:43)
[2023-11-01] MEDS: VITAMIN D3 (cholecalciferol) 50 MCG PO (08:43)
[2023-11-01] MEDS: VITAMIN B-12 1000 MCG PO (08:43)
[2023-11-01] MEDS: VITAMIN C 500 MG PO (08:43)
[2023-11-01] MEDS: ZESTRIL 20 MG PO (08:43)
[2023-11-01] MEDS: ZOSYN 50 IV ×3 (08:45→20:54)
--- NOTE | 2023-11-01 11:33 | CM ---
Reviewed the chart notes and spoke with the patient at the bedside. The patient resides at [facility]'s personal care unit. The patient reports using a rolling walker with ambulation. The patient has been to [facility] in the past. CM continues to be
available to patient/family and is monitoring medical plan for needs at discharge.
Plan: Discharge plans will depend on the patient's progress.
[2023-11-01 15:00] VITALS: BP 123/96
[2023-11-01] MEDS: LOVENOX 40 MG SC (17:51)
[2023-11-01] MEDS: CRESTOR 40 MG PO (21:36)
[2023-11-01 23:37] VITALS: BP 141/87
[2023-11-02] MEDS: ZOSYN 50 IV ×4 (02:23→20:35)
[2023-11-02 07:11] LABS: Hematocrit 35.5 % (39.0-52.0); Hemoglobin 12.4 g/dL (13.0-18.0); Mean Corp Hgb Conc. 34.9 g/dL (33.0-37.0); Mean Corpuscular Hgb 33.3 pg (27.0-31.0); Mean Corpuscular Volume 95.4 fL (80.0-94.0); Mean Platelet Volume 9.6 fL (7.4-10.4); Platelet Count 145 10^3/uL (130-400); Red Blood Cell Count 3.72 10^6/uL (4.70-6.10); Red Cell Dist. Width 13.5 % (11.5-14.5); White Blood Cell Count 13.8 10^3/uL (4.8-10.8)
[2023-11-02 07:20] VITALS: BP 133/68
--- NOTE | 2023-11-02 07:25 | W.PN.HOSP.TC ---
Today's Communication/Plan
-
cont abx
follow cultures
bowel regimen
anusol
PT/OT
Assessment / Plan
Assessment / Plan
Physical Exam
General: Comfortable
Respiratory: Clear to auscultation bilateral stable respiratory status room air
Cardiac: S1/S2 and Regular Rhythm
GI: Soft and Normal Bowel Sounds
Musculoskeletal: No Edema
Neuro: AOx2 disoriented to time conversant and coherent
Psych: Calm
88M [facility] HLD HTN Osteoporosis PAD Right Carotid Endarterectomy here for sepsis pna
# Right upper lobe infiltrate-treat as pneumonia with fever
#Sepsis PNA (fever leukocytosis)
#Bacteremia
Blood cultures prelim positive for gram neg bacilli, blood cultures repeated
[id number]
Speech evaluation to rule out aspiration.
Patient has a history of 4.5 into 205.5 cm nodular area in the parenchymal airspace in the medial aspect of the right upper lobe on a CT from 04/01/[address] chest appreciated
Continue Zithromax, ceftriaxone replaced with zosyn
# TME likely secondary to above- resolving/possibly baseline at this time.
# Hyperlipidemia/atherosclerosis
continue statin
# Hypertension
Continue lisinopril
# Hypothyroidism ruled out
TSH wnl euthyroid off thyroid supplementation
Rectal Pain Abd discomfort suspect d/t hemorrhoids and constipation
bowel regimen started
Anusol started
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
# PAD-History of right carotid endarterectomy. 60% narrowing of the mid left common carotid artery-continue aspirin and statin. Follows with Dr. Painter
# Nephrolithiasis
# DVT prophylaxis-Lovenox
# CODE STATUS- DNR
Discussed with patient and patient's poa friend Uziel
I spent a total of 50 minutes with the patient or on the floor. More than 50% of this time involved counseling and coordination of care.
Anticipated Discharge: 24 - 48 hours
Subjective/Interval History
-
Date of Service: November 02, 2023
Reports feeling well. Notes rectal burning and straining with bowel movements/abd discomfort. Abd soft nontender.
Objective Data
-
Labs:
Laboratory Results
11/02/23
06:40
WBC 13.8 H
Hgb 12.4 L
Hct 35.5 L
Plt Count 145
Sodium Pending
Potassium Pending
Chloride Pending
Carbon Dioxide Pending
BUN Pending
Creatinine Pending
Glucose Pending
Calcium Pending
Vital Signs:
Vital Signs
Temp Pulse Resp BP Pulse Ox
97.8 F 70 16 141/87 96
11/01/23 23:37 11/01/23 23:37 11/01/23 23:37 11/01/23 23:37 11/01/23 23:37
I&O
11/01/23 11/02/23 11/03/23
06:59 06:59 06:59
Intake Total 60 / 60 1240 / 1240 480 / 480
Output Total 390 / 390
Balance 60 / 60 850 / 850 480 / 480
[2023-11-02 07:27] LABS: Blood Urea Nitrogen 34 mg/dl (9-20); Carbon Dioxide 25 mmol/L (22-30); Chloride 103 mmol/L (98-107); Estimated Creatinine Clearance 42 ml/min; Glucose 108 mg/dl (70-99); Magnesium 2.4 mg/dl (1.6-2.3); Phosphorus 2.7 mg/dl (2.5-4.5); Sodium 137 mmol/L (135-145); eGFR > 60.00
[2023-11-02] MEDS: ZITHROMAX 500 MG PO (08:38)
[2023-11-02] MEDS: THERAGRAN 1 TABLET PO (08:38)
[2023-11-02] MEDS: MAGNESIUM OXIDE 500 MG PO (08:38)
[2023-11-02] MEDS: ZESTRIL 20 MG PO (08:39)
[2023-11-02] MEDS: VITAMIN B-12 1000 MCG PO (08:39)
[2023-11-02] MEDS: VITAMIN D3 (cholecalciferol) 50 MCG PO (08:39)
[2023-11-02] MEDS: LOW STRENGTH ASPIRIN 81 MG PO (08:39)
[2023-11-02] MEDS: SENOKOT-S PO (08:39)
[2023-11-02] MEDS: VITAMIN C 500 MG PO (08:39)
[2023-11-02] MEDS: FLORASTOR 250 MG PO (13:05)
[2023-11-02 15:41] VITALS: BP 110/57
[2023-11-02 16:10] VITALS: BP 120/71; PULSE 69; PULSE 77; O2SAT 96
[2023-11-02] MEDS: LOVENOX 40 MG SC (17:13)
[2023-11-02] MEDS: CRESTOR 40 MG PO (20:36)
[2023-11-02] MEDS: SENOKOT-S 1 TABLET PO (20:36)
[2023-11-02] MEDS: ANUSOL HC 25 MG RECTAL (20:36)
[2023-11-02 23:11] VITALS: BP 112/56
[2023-11-03] MEDS: ZOSYN 50 IV ×4 (02:07→20:45)
--- NOTE | 2023-11-03 07:20 | W.PN.HOSP.TC ---
Today's Communication/Plan
-
cont abx
PT/OT
Assessment / Plan
Assessment / Plan
Physical Exam
General: Comfortable
Respiratory: Clear to auscultation bilateral stable respiratory status room air
Cardiac: S1/S2 and Regular Rhythm
GI: Soft and Normal Bowel Sounds
Musculoskeletal: No Edema
Neuro: AOx2 disoriented to time conversant and coherent
Psych: Calm
88M [facility] HLD HTN Osteoporosis PAD Right Carotid Endarterectomy here for sepsis pna
# Right upper lobe infiltrate-treat as pneumonia with fever
#Sepsis PNA (fever leukocytosis)
#Bacteremia
Blood cultures prelim positive for gram neg bacilli, blood cultures repeated
[id number]
Speech evaluation to rule out aspiration.
Patient has a history of 4.5 into 205.5 cm nodular area in the parenchymal airspace in the medial aspect of the right upper lobe on a CT from 04/01/[address] chest appreciated
Continue Zithromax, ceftriaxone replaced with zosyn
# TME likely secondary to above- resolving/possibly baseline at this time.
# Hyperlipidemia/atherosclerosis
continue statin
# Hypertension
Continue lisinopril
# Hypothyroidism ruled out
TSH wnl euthyroid off thyroid supplementation
Rectal Pain Abd discomfort suspect d/t hemorrhoids and constipation
bowel regimen started
Anusol started
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
# PAD-History of right carotid endarterectomy. 60% narrowing of the mid left common carotid artery-continue aspirin and statin. Follows with Dr. Painter
# Nephrolithiasis
# DVT prophylaxis-Lovenox
# CODE STATUS- DNR
Discussed with patient and patient's poa friend Uziel
I spent a total of 50 minutes with the patient or on the floor. More than 50% of this time involved counseling and coordination of care.
Anticipated Discharge: 24 - 48 hours
Subjective/Interval History
-
Date of Service: November 03, 2023
No acute distress. Reports feeling well.
Objective Data
-
Labs:
Laboratory Results
11/03/23
06:00
WBC Pending
Hgb Pending
Hct Pending
Plt Count Pending
Sodium Pending
Potassium Pending
Chloride Pending
Carbon Dioxide Pending
BUN Pending
Creatinine Pending
Glucose Pending
Calcium Pending
Vital Signs:
Vital Signs
Temp Pulse Resp BP Pulse Ox
97.9 F 67 18 112/56 96
11/02/23 23:11 11/02/23 23:11 11/02/23 23:11 11/02/23 23:11 11/02/23 23:11
I&O
11/02/23 11/03/23 11/04/23
06:59 06:59 06:59
Intake Total 1240 / 1240 1240 / 1240
Output Total 390 / 390 400 / 400
Balance 850 / 850 840 / 840
[2023-11-03 07:21] VITALS: BP 160/75
[2023-11-03 08:15] LABS: Hematocrit 39.3 % (39.0-52.0); Hemoglobin 13.4 g/dL (13.0-18.0); Mean Corp Hgb Conc. 34.1 g/dL (33.0-37.0); Mean Corpuscular Hgb 32.9 pg (27.0-31.0); Mean Corpuscular Volume 96.6 fL (80.0-94.0); Mean Platelet Volume 10.2 fL (7.4-10.4); Platelet Count 190 10^3/uL (130-400); Red Blood Cell Count 4.07 10^6/uL (4.70-6.10); Red Cell Dist. Width 13.5 % (11.5-14.5); White Blood Cell Count 9.6 10^3/uL (4.8-10.8)
[2023-11-03] MEDS: MAGNESIUM OXIDE 500 MG PO (08:21)
[2023-11-03] MEDS: FLORASTOR 250 MG PO (08:21)
[2023-11-03] MEDS: ZESTRIL 20 MG PO (08:22)
[2023-11-03] MEDS: SENOKOT-S 1 TABLET PO (08:22)
[2023-11-03] MEDS: VITAMIN D3 (cholecalciferol) 50 MCG PO (08:22)
[2023-11-03] MEDS: ZITHROMAX 500 MG PO (08:22)
[2023-11-03] MEDS: VITAMIN C 500 MG PO (08:22)
[2023-11-03] MEDS: MIRALAX 17 GRAMS PO (08:22)
[2023-11-03] MEDS: THERAGRAN 1 TABLET PO (08:22)
[2023-11-03] MEDS: VITAMIN B-12 1000 MCG PO (08:22)
[2023-11-03] MEDS: LOW STRENGTH ASPIRIN 81 MG PO (08:22)
[2023-11-03 08:27] LABS: Blood Urea Nitrogen 28 mg/dl (9-20); Calcium 9.4 mg/dl (8.4-10.2); Carbon Dioxide 28 mmol/L (22-30); Chloride 102 mmol/L (98-107); Estimated Creatinine Clearance 35 ml/min; Glucose 110 mg/dl (70-99); Magnesium 2.5 mg/dl (1.6-2.3); Phosphorus 2.9 mg/dl (2.5-4.5); Potassium 3.8 mmol/L (3.5-5.1); eGFR 57.81
[2023-11-03 08:40] LABS: Sodium 142 mmol/L (135-145)
--- NOTE | 2023-11-03 13:42 | CM ---
Reviewed chart, PT/OT, patient progressing well and close to baseline with both. Will watch for any VN needs.
Plan: Case management will continue to follow and assist with discharge planning. Home, potential need for home PT/OT.
[2023-11-03 15:24] VITALS: BP 117/55
[2023-11-03] MEDS: LOVENOX 40 MG SC (20:45)
[2023-11-03] MEDS: SENOKOT-S PO ×2 (21:03→21:10)
[2023-11-03] MEDS: CRESTOR 40 MG PO (21:04)
[2023-11-03] MEDS: ANUSOL HC RECTAL ×2 (21:05→21:10)
[2023-11-03 22:48] VITALS: BP 110/58
[2023-11-04] MEDS: ZOSYN 50 IV ×2 (02:10→07:54)
[2023-11-04 07:15] LABS: Hematocrit 37.4 % (39.0-52.0); Hemoglobin 12.8 g/dL (13.0-18.0); Mean Corp Hgb Conc. 34.2 g/dL (33.0-37.0); Mean Corpuscular Hgb 33.2 pg (27.0-31.0); Mean Corpuscular Volume 97.1 fL (80.0-94.0); Mean Platelet Volume 9.8 fL (7.4-10.4); Platelet Count 166 10^3/uL (130-400); Red Blood Cell Count 3.85 10^6/uL (4.70-6.10); Red Cell Dist. Width 13.6 % (11.5-14.5); White Blood Cell Count 5.8 10^3/uL (4.8-10.8)
[2023-11-04 07:19] VITALS: BP 151/68
[2023-11-04 07:36] LABS: Blood Urea Nitrogen 26 mg/dl (9-20); Calcium 9.2 mg/dl (8.4-10.2); Carbon Dioxide 22 mmol/L (22-30); Chloride 105 mmol/L (98-107); Estimated Creatinine Clearance 42 ml/min; Glucose 97 mg/dl (70-99); Magnesium 2.6 mg/dl (1.6-2.3); Potassium 3.7 mmol/L (3.5-5.1); Sodium 140 mmol/L (135-145); eGFR > 60.00
--- NOTE | 2023-11-04 07:51 | W.PN.HOSP.TC ---
Today's Communication/Plan
-
IV abx transitioned to PO
PT/OT
Pulm eval
discharge planning
Assessment / Plan
Assessment / Plan
Physical Exam
General: Comfortable
Respiratory: Clear to auscultation bilateral stable respiratory status room air
Cardiac: S1/S2 and Regular Rhythm
GI: Soft and Normal Bowel Sounds
Musculoskeletal: No Edema
Neuro: AOx2 disoriented to time conversant and coherent
Psych: Calm
88M [facility] HLD HTN Osteoporosis PAD Right Carotid Endarterectomy here for sepsis pna
# Right upper lobe infiltrate-treat as pneumonia with fever
#Sepsis PNA (fever leukocytosis)
#Bacteremia
Blood cultures prelim positive for gram neg bacilli, blood cultures repeated
[id number]
Speech evaluation to rule out aspiration.
Patient has a history of 4.5 into 205.5 cm nodular area in the parenchymal airspace in the medial aspect of the right upper lobe on a CT from 04/01/[address] chest appreciated
Pulm eval requested
Continue Zithromax, ceftriaxone replaced with zosyn, de-escalated to Augmentin
# TME likely secondary to above- resolving/possibly baseline at this time.
# Hyperlipidemia/atherosclerosis
continue statin
# Hypertension
Continue lisinopril
# Hypothyroidism ruled out
TSH wnl euthyroid off thyroid supplementation
Rectal Pain Abd discomfort suspect d/t hemorrhoids and constipation
bowel regimen started
Anusol started
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
# PAD-History of right carotid endarterectomy. 60% narrowing of the mid left common carotid artery-continue aspirin and statin. Follows with Dr. Painter
# Nephrolithiasis
# DVT prophylaxis-Lovenox
# CODE STATUS- DNR
Discussed with patient and patient's poa friend Uziel
I spent a total of 40 minutes with the patient or on the floor. More than 50% of this time involved counseling and coordination of care.
Anticipated Discharge: 24 - 48 hours
Subjective/Interval History
-
Date of Service: November 04, 2023
No acute distress. Appears comfortable at this time.
Objective Data
-
Labs:
Laboratory Results
11/04/23
06:53
WBC 5.8
Hgb 12.8 L
Hct 37.4 L
Plt Count 166
Sodium 140
Potassium 3.7
Chloride 105
Carbon Dioxide 22
BUN 26 H
Creatinine 1.0
Glucose 97
Calcium 9.2
Vital Signs:
Vital Signs
Temp Pulse Resp BP Pulse Ox
97.7 F 68 17 151/68 97
11/04/23 07:19 11/04/23 07:19 11/04/23 07:19 11/04/23 07:19 11/04/23 07:19
I&O
11/03/23 11/04/23 11/05/23
06:59 06:59 06:59
Intake Total 1240 / 1240 1060 / 1060
Output Total 400 / 400 700 / 700
Balance 840 / 840 360 / 360
[2023-11-04] MEDS: THERAGRAN 1 TABLET PO (07:54)
[2023-11-04] MEDS: MIRALAX 17 GRAMS PO (07:54)
[2023-11-04] MEDS: SENOKOT-S 1 TABLET PO (07:54)
[2023-11-04] MEDS: VITAMIN C 500 MG PO (07:54)
[2023-11-04] MEDS: MAGNESIUM OXIDE 500 MG PO (07:56)
[2023-11-04] MEDS: VITAMIN B-12 1000 MCG PO (07:57)
[2023-11-04] MEDS: FLORASTOR 250 MG PO (07:57)
[2023-11-04] MEDS: LOW STRENGTH ASPIRIN 81 MG PO (07:57)
[2023-11-04] MEDS: ZESTRIL 20 MG PO (07:57)
[2023-11-04] MEDS: VITAMIN D3 (cholecalciferol) 50 MCG PO (07:57)
[2023-11-04 13:42] VITALS: BP 119/71; PULSE 65; O2SAT 97
[2023-11-04] MEDS: AUGMENTIN 875 MG/125 MG 1 TABLET PO ×2 (13:47→21:31)
--- NOTE | 2023-11-04 14:04 | CON.PUL ---
Consultation
Consultation Request
Date/Time Consultation Requested: 11/04/2023 - 1253
Date/Time Consultation Performed: 11/04/2023 - 1307
Requesting Provider: Dr. Hawk
Performing Provider: Dr. Valle
Reason for Consultation: PNA/RUL Mass
Medical History
-
Chief Complaint: Weakness + confusion
History of Present Illness:
88-year-old male former tobacco smoker with a past medical history of prostate cancer, carotid artery disease s/p R�CEA, coronary artery disease, hypothyroidism, BPH, PAD, left indirect inguinal hernia and history of nonmelanoma skin cancer (BCC)
s/p removal who presents with worsening weakness + confusion. Patient lives at [facility]. Patient's main complaint in the ER was back pain. EMS reported patient's BP was elevated and he was AAOx2. Initial vitals in the ER
showed he was afebrile to 99.6 �F, pulse rate 100, breathing at 20 breaths minute, initial BP 203/90 (next BP 20 minutes later was 155/87), and SpO2 95% on room air. Initial blood work showed leukocytosis to 14.1, Hb 15.2, troponin negative at
<0.012, urinalysis showed trace ketones and was negative for UTI and COVID 19 antigen was negative. Blood culture was collected which later grew Pasteurella multicoda. CXR showed right suprahilar pneumonia which was confirmed on subsequent CT
chest. CT chest also showed a 3.2 cm irregularly shaped spiculated peribronchial opacity in the anterior RUL and a 1.1 cm solid pulmonary nodule in the right lung apex. Both of these were unchanged since prior CT imaging in 2021. Pulmonary now
consulted for additional management/recommendations.
When I saw the patient he was in his chair, in no acute distress on room air breathing complete. He endorses minimal shortness of breath and no cough. Also denies chest pain, CANO, abdominal pain, fevers chills. He has chronic bilateral shoulder
pain and he also developed diarrhea few days ago. Stool is nonbloody and is dark.
PMHx: Prostate cancer, hypothyroidism, BPH, rotator cuff tear, history of basal cell carcinoma skin cancer, hypertension, CAD, carotid artery disease, hyperlipidemia, PAD, right hip fracture, left indirect inguinal hernia
PSHx: Nasal surgery, skin cancer removal, cataract surgery (bilateral), hernia repair, shoulder injection, right carotid endarterectomy, cystoscopy, right hip replacement
Past Medical History
Past Medical History: Other (Above as per HPI)
Past Surgical History: Other (Above as per HPI)
Social History
Tobacco: Former Smoker
Alcohol: None
Drug: None
Personal: Single
Family History
Family History: CAD (Father: of [place] at age 69) and Other (Mother: Stroke)
Allergies / Home Medications
Allergies
Allergy/AdvReac Type Severity Reaction Status Date / Time
finasteride Allergy joint Verified 10/31/23 09:55
soreness
Home Medications
�Medication �Instructions �Recorded �Confirmed �Last Taken �Type
ascorbic acid (vitamin C) 500 mg 500 mg PO DAILY Supplement 12/17/16 10/31/23 04/03/21 History
tablet (Vitamin C)
magnesium oxide 500 mg PO DAILY Supplement 12/27/20 10/31/23 04/03/21 History
rosuvastatin 40 mg tablet (Crestor) 40 mg PO HS High cholesterol 12/27/20 10/31/23 04/09/21 20:00 History
lutein 40 mg capsule 40 mg PO DAILY Supplement 04/10/21 10/31/23 04/03/21 History
cholecalciferol (vitamin D3) 50 2,000 units PO DAILY Supplement 06/13/21 10/31/23 Unknown History
mcg (2,000 unit) tablet
cyanocobalamin (vitamin B-12) 1,000 mcg PO DAILY Supplement 06/13/21 10/31/23 Unknown History
1,000 mcg tablet
multivitamin with folic acid 400 1 tab PO DAILY Supplement 06/13/21 10/31/23 Unknown History
mcg tablet (Tab-A-Anne)
acetaminophen 325 mg tablet 650 mg PO Q6H PRN mild pain/fever 05/12/23 10/31/23 Unknown History
aspirin 81 mg chewable tablet 81 mg PO DAILY Heart 05/12/23 10/31/23 Unknown History
Disease/Condition
furosemide 20 mg tablet 20 mg PO MOWEFR Fluid 05/12/23 10/31/23 Unknown History
Retention/Swelling
lisinopril 20 mg tablet 20 mg PO DAILY #14 tabs 07/16/23 10/31/23 Unknown Rx
acetaminophen 325 mg tablet 650 mg PO BID Pain 10/31/23 10/31/23 Unknown History
sennosides 8.6 mg-docusate sodium 1 tab-cap PO DAILY Constipation 10/31/23 10/31/23 Unknown History
50 mg tablet (Senna-S)
Review of Systems
-
History Source: Patient
All other systems: Negative unless noted
Vitals / Labs / Diagnostic Testing
Vital Signs
Temp Pulse Resp BP Pulse Ox
97.7 F 68 17 151/68 97
11/04/23 07:19 11/04/23 07:57 11/04/23 07:19 11/04/23 07:57 11/04/23 07:19
Lab Data
11/04/23 06:53
11/04/23 06:53
Microbiology
11/01/23 09:34 Blood/Venous Blood Culture - Preliminary
No Growth in 72 hours- Final report to follow
11/01/23 08:44 Blood/Venous Blood Culture - Preliminary
No Growth in 72 hours- Final report to follow
10/31/23 14:15 Blood/Venous Blood Culture - Preliminary
Pasteurella multocida
10/31/23 14:15 Blood/Venous Gram Stain - Preliminary
10/31/23 22:35 Nose MRSA Screen - Final
No Methicillin Resistant Staphylococcus aureus isolated.
Diagnostic Testing:
Physical Exam
-
HEENT: Normocephalic and Anicteric
Cardiovascular: S1/S2 and Peripheral Edema (negative)
Respiratory: Wheeze (negative), Rales (negative), Rhonchi (negative), Non-Labored Respirations and Other (Diminished breath sounds bilaterally)
GI: Soft, Non Distended, Non Tender and Normal Bowel Sounds
Neurology: Awake, Alert and Tremors (negative)
Skin: Warm and Dry
General: Respiratory Distress (negative), Comfortable, Chills (negative) and Sweats (negative)
Assessment
-
Assessment: 88-year-old male former tobacco smoker with a past medical history of prostate cancer, carotid artery disease s/p R�CEA, coronary artery disease, hypothyroidism, BPH, PAD, left indirect inguinal hernia and history of nonmelanoma skin
cancer (BCC) s/p removal who presents with worsening weakness + confusion. Patient lives at [facility]. Patient's main complaint in the ER was back pain. EMS reported patient's BP was elevated and he was AAOx2. Initial vitals
in the ER showed he was afebrile to 99.6 �F, pulse rate 100, breathing at 20 breaths minute, initial BP 203/90 (next BP 20 minutes later was 155/87), and SpO2 95% on room air. Initial blood work showed leukocytosis to 14.1, Hb 15.2, troponin
negative at <0.012, urinalysis showed trace ketones and was negative for UTI and COVID 19 antigen was negative. Blood culture was collected which later grew Pasteurella multicoda. CXR showed right suprahilar pneumonia which was confirmed on
subsequent CT chest. CT chest also showed a 3.2 cm irregularly shaped spiculated peribronchial opacity in the anterior RUL and a 1.1 cm solid pulmonary nodule in the right lung apex. Both of these were unchanged since prior CT imaging in 2021.
Pulmonary now consulted for additional management/recommendations.
Chronic conditions FIELD AGENT: Prostate cancer, hypothyroidism, BPH, rotator cuff tear, history of basal cell carcinoma skin cancer, hypertension, CAD, carotid artery disease, hyperlipidemia, PAD, right hip fracture, left indirect inguinal hernia
Impression:
#Right upper lobe pneumonia/CAP
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
#Diarrhea
#RUL 3.2 cm irregularly-shaped spiculated peribronchial opacity, stable since prior CT chest in April 2021
#RUL pulmonary nodule measuring 1.1 cm (stable since CT chest from April 2021)
#Anemia
Plan:
- Continue with antibiotics � currently on Augmentin
- Would give total of 14 days Abx from date of last negative BCx, assuming he continues to clinically improve and remains afebrile for at least 48 hours prior to stopping antibiotics
- Maintain SpO2 >90-94% with supplemental O2 as needed
- Check sputum culture if patient able to submit a decent sample
- Check Legionella/strep pneumoniae urine antigens
- Trend WBC and monitor fever curve
- Repeat CT chest in about 6 weeks to follow RUL pneumonia resolution
- Considering the stability of his other RUL abnormalities including the peribronchial opacity + RUL nodule, no need to biopsy these or perform invasive procedures considering the patient's age
- Treat with anti-diarrheal prn assuming the stool is non-bloody and no mucous seen in stool, and no concern for C diff
- Incentive spirometer encouraged
- PT/OT
- Replete electrolytes with K>4, Mg>2
- Maintain euglycemia with goal BG >100 and <180
- prn nebulized bronchodilators
- DVT ppx
Pulmonary service will continue to follow along.
Data:
CT chest with IV contrast 11/01/2023:
1. NEW MODERATE-SIZED PNEUMONIA in the POSTERIOR SEGMENT of the RIGHT UPPER LOBE.
2. 3.2 cm irregularly shaped spiculated peribronchial opacity in the anterior segment of the right upper lobe which appears unchanged. Diagnostic possibilities are (1) peribronchial scarring or (2) right upper lobe lung cancer.
3. 1.1 cm solid pulmonary nodule in the right lung apex which appears unchanged.
4. Minimal bilateral pleural effusions.
5. Severe calcific atherosclerotic plaque in the coronary arteries.
6. 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
7. Severe calcific atherosclerotic plaque in the proximal superior mesenteric and right renal arteries causing greater than 70% diameter stenosis.
Total time spent today was 55 minutes for this encounter. Time includes reviewing laboratory test/imaging results, reviewing pertinent medical records, obtaining and reviewing medical history, performing an appropriate exam, ordering medications,
tests and procedures. Time also includes documentation of this encounter, coordinating patient care and communicating with other healthcare professionals. Total time does not include separately billed tests performed on this date of service.
[2023-11-04 15:39] VITALS: BP 145/71
--- NOTE | 2023-11-04 16:28 | CM ---
Reviewed chart, received call from Benjamin at [facility] who wanted an update on patient, however, call disconnected. Placed a call to [facility] and spoke with one of patient's RN, named, Shazia who stated that she will get CM contact information back
over to Benjamin and ask him to give a return call. (Call came tracing lathe set up operator so no record of his number on phone).
Plan: Case management will continue to follow and assist with discharge planning. Back to [facility] when stable. Will follow for skilled needs.
[2023-11-04] MEDS: LOVENOX 40 MG SC (17:50)
[2023-11-04] MEDS: SENOKOT-S PO (20:12)
[2023-11-04] MEDS: ANUSOL HC RECTAL (21:30)
[2023-11-04] MEDS: CRESTOR 40 MG PO (21:31)
[2023-11-04] MEDS: TYLENOL 650 MG PO (21:32)
[2023-11-04 23:00] VITALS: BP 103/49
[2023-11-05 06:37] LABS: Hematocrit 35.3 % (39.0-52.0); Mean Platelet Volume 9.9 fL (7.4-10.4); Platelet Count 191 10^3/uL (130-400); Red Blood Cell Count 3.64 10^6/uL (4.70-6.10); Red Cell Dist. Width 13.6 % (11.5-14.5)
[2023-11-05 06:58] LABS: Blood Urea Nitrogen 23 mg/dl (9-20); Calcium 9.1 mg/dl (8.4-10.2); Carbon Dioxide 25 mmol/L (22-30); Chloride 103 mmol/L (98-107); Estimated Creatinine Clearance 47 ml/min; Glucose 92 mg/dl (70-99); Magnesium 2.4 mg/dl (1.6-2.3); Phosphorus 3.4 mg/dl (2.5-4.5); Potassium 3.7 mmol/L (3.5-5.1); Sodium 141 mmol/L (135-145); eGFR > 60.00
--- NOTE | 2023-11-05 07:21 | W.PN.HOSP.TC ---
Today's Communication/Plan
-
cont abx
PT/OT
bowel regimen switched to prn
Assessment / Plan
Assessment / Plan
Physical Exam
General: Comfortable
Respiratory: Clear to auscultation bilateral stable respiratory status room air
Cardiac: S1/S2 and Regular Rhythm
GI: Soft and Normal Bowel Sounds
Musculoskeletal: No Edema
Neuro: AOx2 disoriented to time conversant and coherent
Psych: Calm
88M [facility] HLD HTN Osteoporosis PAD Right Carotid Endarterectomy here for sepsis pna
# Right upper lobe infiltrate-treat as pneumonia with fever
#Sepsis PNA (fever leukocytosis)
#Bacteremia
Blood cultures prelim positive for gram neg bacilli, blood cultures repeated
[id number]
Speech evaluation to rule out aspiration.
Patient has a history of 4.5 into 205.5 cm nodular area in the parenchymal airspace in the medial aspect of the right upper lobe on a CT from 04/01/[address]21
CT chest appreciated
Pulm eval appreciated
Continue Zithromax, ceftriaxone replaced with zosyn, de-escalated to Augmentin
# TME likely secondary to above- resolving/possibly baseline at this time.
# Hyperlipidemia/atherosclerosis
continue statin
# Hypertension
Continue lisinopril
# Hypothyroidism ruled out
TSH wnl euthyroid off thyroid supplementation
Rectal Pain Abd discomfort suspect d/t hemorrhoids and constipation
bowel regimen started
Anusol started
pain and abd discomfort since resolved, anusol discontinued pt refusing, bowel regimen switched to prn pt having frequent loose stools
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
# PAD-History of right carotid endarterectomy. 60% narrowing of the mid left common carotid artery-continue aspirin and statin. Follows with Dr. Painter
# Nephrolithiasis
# DVT prophylaxis-Lovenox
# CODE STATUS- DNR
Discussed with patient and patient's poa friend Uziel
I spent a total of 40 minutes with the patient or on the floor. More than 50% of this time involved counseling and coordination of care.
Anticipated Discharge: 24 - 48 hours
Subjective/Interval History
-
Date of Service: November 05, 2023
Reports feeling well, significantly improved. Loose bowel movements noted, scheduled laxatives since switched to prn
Objective Data
-
Labs:
Laboratory Results
11/05/23
05:33
WBC 6.0
Hgb 12.0 L
Hct 35.3 L
Plt Count 191
Sodium 141
Potassium 3.7
Chloride 103
Carbon Dioxide 25
BUN 23 H
Creatinine 0.9
Glucose 92
Calcium 9.1
Vital Signs:
Vital Signs
Temp Pulse Resp BP Pulse Ox
98.8 F 66 20 103/49 95
11/04/23 23:00 11/04/23 23:00 11/04/23 23:00 11/04/23 23:00 11/04/23 23:00
I&O
11/04/23 11/05/23 11/06/23
06:59 06:59 06:59
Intake Total 1060 / 1060 720 / 720
Output Total 700 / 700 300 / 300
Balance 360 / 360 420 / 420
[2023-11-05 07:49] VITALS: BP 143/69
[2023-11-05] MEDS: AUGMENTIN 875 MG/125 MG 1 TABLET PO ×2 (08:10→20:23)
[2023-11-05] MEDS: ZESTRIL 20 MG PO (08:10)
[2023-11-05] MEDS: LOW STRENGTH ASPIRIN 81 MG PO (08:10)
[2023-11-05] MEDS: MAGNESIUM OXIDE 500 MG PO (08:10)
[2023-11-05] MEDS: FLORASTOR 250 MG PO (08:10)
[2023-11-05] MEDS: VITAMIN C 500 MG PO (08:10)
[2023-11-05] MEDS: THERAGRAN 1 TABLET PO (08:10)
[2023-11-05] MEDS: VITAMIN D3 (cholecalciferol) 50 MCG PO (08:10)
[2023-11-05] MEDS: VITAMIN B-12 1000 MCG PO (08:10)
--- NOTE | 2023-11-05 11:18 | W.PN.PUL3 ---
Today's Communication / Plan
-
Antibiotics
Up OOB as tolerated
Anti-diarrheals prn
PT/OT
Outpatient follow up with repeat CT Chest in ~6 weeks to follow up RUL PNA to resolution
Pulmonary service will continue to briefly follow along
Assessment
-
Assessment: 88-year-old male former tobacco smoker with a past medical history of prostate cancer, carotid artery disease s/p R�CEA, coronary artery disease, hypothyroidism, BPH, PAD, left indirect inguinal hernia and history of nonmelanoma skin
cancer (BCC) s/p removal who presents with worsening weakness + confusion. Patient lives at [facility]. Patient's main complaint in the ER was back pain. EMS reported patient's BP was elevated and he was AAOx2. Initial vitals
in the ER showed he was afebrile to 99.6 �F, pulse rate 100, breathing at 20 breaths minute, initial BP 203/90 (next BP 20 minutes later was 155/87), and SpO2 95% on room air. Initial blood work showed leukocytosis to 14.1, Hb 15.2, troponin
negative at <0.012, urinalysis showed trace ketones and was negative for UTI and COVID 19 antigen was negative. Blood culture was collected which later grew Pasteurella multicoda. CXR showed right suprahilar pneumonia which was confirmed on
subsequent CT chest. CT chest also showed a 3.2 cm irregularly shaped spiculated peribronchial opacity in the anterior RUL and a 1.1 cm solid pulmonary nodule in the right lung apex. Both of these were unchanged since prior CT imaging in 2021.
Pulmonary now consulted for additional management/recommendations.
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
Impression:
#Right upper lobe pneumonia/CAP
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
#Diarrhea
#RUL 3.2 cm irregularly-shaped spiculated peribronchial opacity, stable since prior CT chest in April 2021
#RUL pulmonary nodule measuring 1.1 cm (stable since CT chest from April 2021)
#Anemia
Plan:
- Continue with antibiotics � currently on Augmentin
- Would give total of 14 days Abx from date of last negative BCx, assuming he continues to clinically improve and remains afebrile for at least 48 hours prior to stopping antibiotics
- Maintain SpO2 >90-94% with supplemental O2 as needed
- Check sputum culture if patient able to submit a decent sample
- Legionella/strep pneumoniae urine antigens both negative
- Trend WBC and monitor fever curve
- Repeat CT chest in about 6 weeks to follow RUL pneumonia to resolution
- Considering the stability of his other RUL abnormalities including the peribronchial opacity + RUL nodule, no need to biopsy these or perform invasive procedures considering the patient's age
- Treat with anti-diarrheal prn assuming the stool is non-bloody and no mucous seen in stool, and no concern for C diff
- Incentive spirometer encouraged
- PT/OT
- Replete electrolytes with K>4, Mg>2
- Maintain euglycemia with goal BG >100 and <180
- prn nebulized bronchodilators
- DVT ppx
Pulmonary service will continue to follow along.
Data:
CT chest with IV contrast 11/01/2023:
1. NEW MODERATE-SIZED PNEUMONIA in the POSTERIOR SEGMENT of the RIGHT UPPER LOBE.
2. 3.2 cm irregularly shaped spiculated peribronchial opacity in the anterior segment of the right upper lobe which appears unchanged. Diagnostic possibilities are (1) peribronchial scarring or (2) right upper lobe lung cancer.
3. 1.1 cm solid pulmonary nodule in the right lung apex which appears unchanged.
4. Minimal bilateral pleural effusions.
5. Severe calcific atherosclerotic plaque in the coronary arteries.
6. 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
7. Severe calcific atherosclerotic plaque in the proximal superior mesenteric and right renal arteries causing greater than 70% diameter stenosis.
Total time spent today was 35 minutes for this encounter. Time includes reviewing laboratory test/imaging results, reviewing pertinent medical records, obtaining and reviewing medical history, performing an appropriate exam, ordering medications,
tests and procedures. Time also includes documentation of this encounter, coordinating patient care and communicating with other healthcare professionals. Total time does not include separately billed tests performed on this date of service.
Subjective Data
-
Date of Service:
Date of Service: November 05, 2023
Chief Complaint: Pulmonary Follow Up
Subjective:
Patient seen and evaluated today at bedside. He says he feels much better today. Had some diarrhea earlier this morning but none since then. He is on room air breathing comfortably. He denies chest pain, CANO, abdominal pain, fevers or chills.
Review of Systems
General: Other (Negative unless mentioned above)
Objective Data
Data Reviewed
Vital Signs / I&O / Oxygen:
Vital Signs
Temp Pulse Resp BP Pulse Ox
97.9 F 69 17 143/69 97
11/05/23 07:49 11/05/23 08:10 11/05/23 07:49 11/05/23 08:10 11/05/23 09:21
Intake and Output
11/04/23 11/05/23 11/06/23
06:59 06:59 06:59
Intake Total 1060 / 1060 720 / 720
Output Total 700 / 700 300 / 300
Balance 360 / 360 420 / 420
SaO2 97
Physical Exam
General: Respiratory Distress (negative) and Comfortable
HEENT: Normocephalic and Anicteric
Cardiovascular: S1-S2 and Peripheral Edema (negative)
Respiratory: Clear, Wheeze (negative), Crackles (negative), Rhonchi (negative) and Non-Labored Respirations
GI: Soft, Non Distended, Non Tender and Normal Bowel Sounds
Neurology: Awake, Alert and Tremors (negative)
Skin: Warm, Dry and Jaundice (negative)
Labs/Micro/Reports
Lab Data
11/05/23 05:33
11/05/23 05:33
Microbiology
11/01/23 09:34 Blood/Venous Blood Culture - Preliminary
No Growth in 4 days- Final report to follow
11/01/23 08:44 Blood/Venous Blood Culture - Preliminary
No Growth in 4 days- Final report to follow
11/05/23 05:06 Urine Legionella Urinary Antigen - Final
Negative for Legionella pneumophila Serogroup 1 antigen.
A negative result does not rule out the possiblity of
Legionella infection due to other serogroups or species of
Legionella. Clinical correlation is recommended.
11/05/23 05:06 Urine Streptococcus pneumoniae Antigen (M - Final
Negative for Streptococcus pneumoniae antigen.
A negative result does not exclude infection with
Streptococcus pneumoniae. Clinical correlation is
recommended.
10/31/23 14:15 Blood/Venous Blood Culture - Preliminary
Pasteurella multocida
10/31/23 14:15 Blood/Venous Gram Stain - Preliminary
10/31/23 22:35 Nose MRSA Screen - Final
No Methicillin Resistant Staphylococcus aureus isolated.
--- NOTE | 2023-11-05 11:46 | CM ---
Reviewed chart, spoke with patient who is agreeable to a referral for resumption of care through [facility]. Placed referral for resumption through [employer]. Will keep [facility] updated as to when patient may be discharged.
Plan: Case management will continue to follow and assist with discharge planning. Home to his [place] with home health care through [facility].
[2023-11-05 15:15] VITALS: BP 114/69
[2023-11-05] MEDS: LOVENOX 40 MG SC (17:00)
[2023-11-05] MEDS: CRESTOR 40 MG PO (21:42)
[2023-11-05] MEDS: TYLENOL 650 MG PO (21:43)
[2023-11-05 23:00] VITALS: BP 139/60
[2023-11-06 07:05] VITALS: BP 172/84
--- NOTE | 2023-11-06 07:08 | W.PN.HOSP.TC ---
Today's Communication/Plan
-
observe
discharge planning [facility] assisted living with home services
Assessment / Plan
Assessment / Plan
Physical Exam
General: Comfortable
Respiratory: Clear to auscultation bilateral stable respiratory status room air
Cardiac: S1/S2 and Regular Rhythm
GI: Soft and Normal Bowel Sounds
Musculoskeletal: No Edema
Neuro: AOx2 disoriented to time conversant and coherent
Psych: Calm
88M [facility] HLD HTN Osteoporosis PAD Right Carotid Endarterectomy here for sepsis pna
# Right upper lobe infiltrate-treat as pneumonia with fever
#Sepsis PNA (fever leukocytosis)
#Bacteremia
Blood cultures prelim positive for gram neg bacilli, blood cultures repeated
[id number]
Speech evaluation to rule out aspiration.
Patient has a history of 4.5 into 205.5 cm nodular area in the parenchymal airspace in the medial aspect of the right upper lobe on a CT from 04/01/[address] chest appreciated
Pulm eval appreciated
Continue Zithromax, ceftriaxone replaced with zosyn, de-escalated to Augmentin
# TME likely secondary to above- resolving/possibly baseline at this time.
# Hyperlipidemia/atherosclerosis
continue statin
# Hypertension
Continue lisinopril
# Hypothyroidism ruled out
TSH wnl euthyroid off thyroid supplementation
Rectal Pain Abd discomfort suspect d/t hemorrhoids and constipation
bowel regimen started
Anusol started
pain and abd discomfort since resolved, anusol discontinued pt refusing, bowel regimen switched to prn pt having frequent loose stools
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
# PAD-History of right carotid endarterectomy. 60% narrowing of the mid left common carotid artery-continue aspirin and statin. Follows with Dr. Painter
# Nephrolithiasis
# DVT prophylaxis-Lovenox
# CODE STATUS- DNR
Discussed with patient and patient's poa friend Uziel
I spent a total of 40 minutes with the patient or on the floor. More than 50% of this time involved counseling and coordination of care.
Anticipated Discharge: Within 24 hours
Subjective/Interval History
-
Date of Service: November 06, 2023
Objective Data
-
Labs:
Laboratory Results
11/06/23
06:00
WBC Pending
Hgb Pending
Hct Pending
Plt Count Pending
Sodium Pending
Potassium Pending
Chloride Pending
Carbon Dioxide Pending
BUN Pending
Creatinine Pending
Glucose Pending
Calcium Pending
Vital Signs:
Vital Signs
Temp Pulse Resp BP Pulse Ox
98.4 F 65 16 139/60 95
11/05/23 23:00 11/05/23 23:00 11/05/23 23:00 11/05/23 23:00 11/05/23 23:00
I&O
11/05/23 11/06/23 11/07/23
06:59 06:59 06:59
Intake Total 720 / 720 840 / 840
Output Total 300 / 300 1450 / 1450
Balance 420 / 420 -610 / -610
[2023-11-06 08:00] LABS: Hematocrit 37.4 % (39.0-52.0); Hemoglobin 12.6 g/dL (13.0-18.0); Mean Corp Hgb Conc. 33.7 g/dL (33.0-37.0); Mean Corpuscular Hgb 33.2 pg (27.0-31.0); Mean Corpuscular Volume 98.4 fL (80.0-94.0); Mean Platelet Volume 9.5 fL (7.4-10.4); Platelet Count 207 10^3/uL (130-400); Red Cell Dist. Width 13.5 % (11.5-14.5)
[2023-11-06] MEDS: MAGNESIUM OXIDE 500 MG PO (08:37)
[2023-11-06] MEDS: VITAMIN D3 (cholecalciferol) 50 MCG PO (08:37)
[2023-11-06] MEDS: THERAGRAN 1 TABLET PO (08:37)
[2023-11-06] MEDS: AUGMENTIN 875 MG/125 MG 1 TABLET PO ×2 (08:37→20:22)
[2023-11-06] MEDS: VITAMIN C 500 MG PO (08:37)
[2023-11-06] MEDS: VITAMIN B-12 1000 MCG PO (08:37)
[2023-11-06] MEDS: LOW STRENGTH ASPIRIN 81 MG PO (08:37)
[2023-11-06] MEDS: FLORASTOR 250 MG PO (08:37)
[2023-11-06] MEDS: ZESTRIL 20 MG PO (08:38)
[2023-11-06 08:42] LABS: Blood Urea Nitrogen 19 mg/dl (9-20); Calcium 9.5 mg/dl (8.4-10.2); Carbon Dioxide 29 mmol/L (22-30); Chloride 104 mmol/L (98-107); Estimated Creatinine Clearance 53 ml/min; Glucose 103 mg/dl (70-99); Magnesium 2.3 mg/dl (1.6-2.3); Phosphorus 3.1 mg/dl (2.5-4.5); Potassium 4.1 mmol/L (3.5-5.1); Sodium 143 mmol/L (135-145); eGFR > 60.00
[2023-11-06] MEDS: TYLENOL 650 MG PO ×2 (08:44→20:25)
[2023-11-06 09:54] VITALS: BP 117/64; BP 152/85; PULSE 86; O2SAT 94
--- NOTE | 2023-11-06 09:55 | W.PN.PUL3 ---
Today's Communication / Plan
-
Antibiotics
Up OOB as tolerated
Anti-diarrheals prn
PT/OT
Outpatient follow up with repeat CT Chest in ~6 weeks to follow up RUL PNA to resolution
Patient is continuing to do remarkably well. No additional pulmonary recommendations at this time. Outpatient follow-up will be arranged. Pulmonary service will now sign off. Please reconsult if there are any additional questions/concerns, or if
patient's respiratory status deteriorates.
Assessment
-
Assessment: 88-year-old male former tobacco smoker with a past medical history of prostate cancer, carotid artery disease s/p R�CEA, coronary artery disease, hypothyroidism, BPH, PAD, left indirect inguinal hernia and history of nonmelanoma skin
cancer (BCC) s/p removal who presents with worsening weakness + confusion. Patient lives at [facility]. Patient's main complaint in the ER was back pain. EMS reported patient's BP was elevated and he was AAOx2. Initial vitals
in the ER showed he was afebrile to 99.6 �F, pulse rate 100, breathing at 20 breaths minute, initial BP 203/90 (next BP 20 minutes later was 155/87), and SpO2 95% on room air. Initial blood work showed leukocytosis to 14.1, Hb 15.2, troponin
negative at <0.012, urinalysis showed trace ketones and was negative for UTI and COVID 19 antigen was negative. Blood culture was collected which later grew Pasteurella multicoda. CXR showed right suprahilar pneumonia which was confirmed on
subsequent CT chest. CT chest also showed a 3.2 cm irregularly shaped spiculated peribronchial opacity in the anterior RUL and a 1.1 cm solid pulmonary nodule in the right lung apex. Both of these were unchanged since prior CT imaging in 2021.
Pulmonary now consulted for additional management/recommendations.
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
Impression:
#Right upper lobe pneumonia/CAP
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
#Diarrhea
#RUL 3.2 cm irregularly-shaped spiculated peribronchial opacity, stable since prior CT chest in April 2021
#RUL pulmonary nodule measuring 1.1 cm (stable since CT chest from April 2021)
#Anemia
Plan:
- Continue with antibiotics � currently on Augmentin
- Would give total of 14 days Abx from date of last negative BCx, assuming he continues to clinically improve and remains afebrile for at least 48 hours prior to stopping antibiotics
- Maintain SpO2 >90-94% with supplemental O2 as needed
- Check sputum culture if patient able to submit a decent sample
- Legionella/strep pneumoniae urine antigens both negative
- Trend WBC and monitor fever curve
- Repeat CT chest in about 6 weeks to follow RUL pneumonia to resolution
- Considering the stability of his other RUL abnormalities including the peribronchial opacity + RUL nodule, no need to biopsy these or perform invasive procedures considering the patient's age
- Treat with anti-diarrheal prn assuming the stool is non-bloody and no mucous seen in stool, and no concern for C diff
- Incentive spirometer encouraged
- PT/OT
- Replete electrolytes with K>4, Mg>2
- Maintain euglycemia with goal BG >100 and <180
- prn nebulized bronchodilators
- DVT ppx
Patient is continuing to do remarkably well. No additional pulmonary recommendations at this time. Outpatient follow-up will be arranged. Pulmonary service will now sign off. Thank you for allowing us to be involved in the care of this patient.
Please reconsult if there are any additional questions/concerns, or if patient's respiratory status deteriorates.
Data:
CT chest with IV contrast 11/01/2023:
1. NEW MODERATE-SIZED PNEUMONIA in the POSTERIOR SEGMENT of the RIGHT UPPER LOBE.
2. 3.2 cm irregularly shaped spiculated peribronchial opacity in the anterior segment of the right upper lobe which appears unchanged. Diagnostic possibilities are (1) peribronchial scarring or (2) right upper lobe lung cancer.
3. 1.1 cm solid pulmonary nodule in the right lung apex which appears unchanged.
4. Minimal bilateral pleural effusions.
5. Severe calcific atherosclerotic plaque in the coronary arteries.
6. 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
7. Severe calcific atherosclerotic plaque in the proximal superior mesenteric and right renal arteries causing greater than 70% diameter stenosis.
Total time spent today was 35 minutes for this encounter. Time includes reviewing laboratory test/imaging results, reviewing pertinent medical records, obtaining and reviewing medical history, performing an appropriate exam, ordering medications,
tests and procedures. Time also includes documentation of this encounter, coordinating patient care and communicating with other healthcare professionals. Total time does not include separately billed tests performed on this date of service.
Subjective Data
-
Date of Service:
Date of Service: November 06, 2023
Chief Complaint: Pulmonary Follow Up
Subjective:
Seen and evaluated today at bedside. He feels well, had a small amount of diarrhea this morning. Nonbloody. Currently on room air breathing comfortably. She denies chest pain, CANO, abdominal pain, nausea, fevers or chills.
Review of Systems
General: Other (Negative unless mentioned above)
Objective Data
Data Reviewed
Vital Signs / I&O / Oxygen:
Vital Signs
Temp Pulse Resp BP Pulse Ox
97.9 F 69 16 172/84 98
11/06/23 07:05 11/06/23 08:38 11/06/23 07:05 11/06/23 08:38 11/06/23 07:05
Intake and Output
11/05/23 11/06/23 11/07/23
06:59 06:59 06:59
Intake Total 720 / 720 840 / 840
Output Total 300 / 300 1450 / 1450
Balance 420 / 420 -610 / -610
SaO2 98
Physical Exam
General: Respiratory Distress (negative) and Comfortable
HEENT: Normocephalic and Anicteric
Cardiovascular: S1-S2 and Peripheral Edema (Trace lower extremity edema bilaterally)
Respiratory: Clear, Wheeze (negative), Crackles (negative), Rhonchi (negative) and Non-Labored Respirations
GI: Soft, Non Distended, Non Tender and Normal Bowel Sounds
Neurology: Awake, Alert and Tremors (negative)
Skin: Warm, Dry and Jaundice (negative)
Labs/Micro/Reports
Lab Data
11/06/23 07:44
11/06/23 07:44
Microbiology
11/01/23 09:34 Blood/Venous Blood Culture - Final
No Growth - Final Report
11/01/23 08:44 Blood/Venous Blood Culture - Final
No Growth - Final Report
11/05/23 05:06 Urine Legionella Urinary Antigen - Final
Negative for Legionella pneumophila Serogroup 1 antigen.
A negative result does not rule out the possiblity of
Legionella infection due to other serogroups or species of
Legionella. Clinical correlation is recommended.
11/05/23 05:06 Urine Streptococcus pneumoniae Antigen (M - Final
Negative for Streptococcus pneumoniae antigen.
A negative result does not exclude infection with
Streptococcus pneumoniae. Clinical correlation is
recommended.
10/31/23 14:15 Blood/Venous Blood Culture - Preliminary
Pasteurella multocida
10/31/23 14:15 Blood/Venous Gram Stain - Preliminary
[2023-11-06 15:05] VITALS: BP 105/62
[2023-11-06] MEDS: LOVENOX 40 MG SC (17:53)
[2023-11-06 23:42] VITALS: BP 138/63
[2023-11-07] MEDS: CRESTOR 40 MG PO (00:13)
[2023-11-07 07:00] VITALS: BP 150/75
--- NOTE | 2023-11-07 07:19 | W.PN.HOSP.TC ---
Today's Communication/Plan
-
discharge
Assessment / Plan
Assessment / Plan
Physical Exam
General: Comfortable
Respiratory: Clear to auscultation bilateral stable respiratory status room air
Cardiac: S1/S2 and Regular Rhythm
GI: Soft and Normal Bowel Sounds
Musculoskeletal: No Edema
Neuro: AOx2 disoriented to time conversant and coherent
Psych: Calm
88M [facility] HLD HTN Osteoporosis PAD Right Carotid Endarterectomy here for sepsis pna
# Right upper lobe infiltrate-treat as pneumonia with fever
#Sepsis PNA (fever leukocytosis)
#Bacteremia
Blood cultures prelim positive for gram neg bacilli, blood cultures repeated
[id number]
Speech evaluation to rule out aspiration.
Patient has a history of 4.5 into 205.5 cm nodular area in the parenchymal airspace in the medial aspect of the right upper lobe on a CT from 04/01/2021
CT chest appreciated
1. NEW MODERATE-SIZED PNEUMONIA in the POSTERIOR SEGMENT of the RIGHT UPPER LOBE.
2. 3.2 cm irregularly shaped spiculated peribronchial opacity in the anterior segment of the right upper lobe which appears unchanged. Diagnostic possibilities are (1) peribronchial scarring or (2) right upper lobe lung cancer.
3. 1.1 cm solid pulmonary nodule in the right lung apex which appears unchanged.
4. Minimal bilateral pleural effusions.
5. Severe calcific atherosclerotic plaque in the coronary arteries.
6. 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
7. Severe calcific atherosclerotic plaque in the proximal superior mesenteric and right renal arteries causing greater than 70% diameter stenosis.
Above vascular results were discussed with patient's vascular surgeon, Dr Painter, no acute intervention recommended, outpatient routine follow up recommended
Pulrod coleman appreciated CT chest in 6 wks f/u RUL PNA, other RUL abnormalities including the peribronchial opacity + RUL nodule, stable, no need to biopsy these or perform invasive procedures considering the patient's age
Continue Zithromax, ceftriaxone replaced with zosyn, de-escalated to Augmentin continue on discharge
14 days abx recommended from date of last negative blood culture 10/31, last day of abx 11/13 as per Pulm
# TME likely secondary to above- resolving/possibly baseline at this time.
# Hyperlipidemia/atherosclerosis
continue statin
# Hypertension
Continue lisinopril
# Hypothyroidism ruled out
TSH wnl euthyroid off thyroid supplementation
Rectal Pain Abd discomfort suspect d/t hemorrhoids and constipation
bowel regimen started
Anusol started
pain and abd discomfort since resolved, anusol discontinued pt refusing, bowel regimen switched to prn pt having frequent loose stools
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
# PAD-History of right carotid endarterectomy. 60% narrowing of the mid left common carotid artery-continue aspirin and statin. Follows with Dr. Painter
# Nephrolithiasis
# DVT prophylaxis-Lovenox
# CODE STATUS- DNR
Medically stable for discharge back to [facility] with visiting nurse services.
Discussed with patient and patient's poa friend Uziel
Total Time Preparing Discharge ____40___ minutes including examination of the patient, summary of the hospital stay, instructions for continuing care to all relevant caregivers; and preparation of discharge records, prescriptions, and referral
forms if necessary.
Anticipated Discharge: Today
Subjective/Interval History
-
Date of Service: November 07, 2023
Seen and examined at bedside in no acute distress. Reports overall feeling well. Denies new acute issues. reports lightheadedness but reports that this has been usual for him in afternoon, likely chronic.
Objective Data
-
Vital Signs:
Vital Signs
Temp Pulse Resp BP Pulse Ox
98.6 F 61 18 138/63 96
11/06/23 23:42 11/06/23 23:42 11/06/23 23:42 11/06/23 23:42 11/06/23 23:42
I&O
11/06/23 11/07/23 11/08/23
06:59 06:59 06:59
Intake Total 840 / 840 1020 / 1020
Output Total 1450 / 1450 1225 / 1225
Balance -610 / -610 -205 / -205
[2023-11-07] MEDS: AUGMENTIN 875 MG/125 MG 1 TABLET PO (08:30)
[2023-11-07] MEDS: VITAMIN D3 (cholecalciferol) 50 MCG PO (08:30)
[2023-11-07] MEDS: VITAMIN C 500 MG PO (08:30)
[2023-11-07] MEDS: LOW STRENGTH ASPIRIN 81 MG PO (08:30)
[2023-11-07] MEDS: VITAMIN B-12 1000 MCG PO (08:30)
[2023-11-07] MEDS: THERAGRAN 1 TABLET PO (08:30)
[2023-11-07] MEDS: MAGNESIUM OXIDE 500 MG PO (08:31)
[2023-11-07] MEDS: ZESTRIL 20 MG PO (08:31)
[2023-11-07] MEDS: FLORASTOR 250 MG PO (08:31)
[2023-11-07] MEDS: TYLENOL 650 MG PO (12:31)
--- NOTE | 2023-11-07 13:19 | W.DCSUMMARY ---
Discharge Summary
Discharge Data
Date of Admission: 10/31/23
Date of Discharge: 11/07/23
-
Pending Results: No
Discharge Plan
-
Patient Disposition: Home with Home Care
Discharge Diagnosis/Procedures: Sepsis Pneumonia
Bacteremia
3.2 cm irregularly shaped spiculated peribronchial opacity Lung CT finding stable compared to prior imaging
Stable Right Upper Lobe Pulmonary nodule
Peripheral Vascular Disease
Hypertension
Condition: Fair
Diet: Regular
Activity: As tolerated and With Walker
Driving Restrictions: No driving
Bathing Restrictions: None
Others Tests: Repeat CT chest in 6 weeks with Pulmonology or primary care provider.
Other Services: PT and OT
Activity Restrictions/Additional Instructions:
Please follow up with primary care provider in 1 week of discharge, Pulmonary in 4-6 weeks of discharge, and Vascular in 1 month of discharge.
Augmentin has been prescribed to continue through 11/14/23 to complete treatment for pneumonia. Probiotic has also been prescribed to promote gut health while on antibiotics. Probiotics are available over the counter.
Tylenol scheduled has been discontinued, pain well controlled with as needed Tylenol.
Magnesium supplementation has been discontinued, levels have been consistently elevated. Please follow up with primary care provider before considering to resume.
Please take medications as prescribed/recommended and follow up with primary care provider and/or other healthcare provider involved in your care for further adjustment to your medication regimen as necessary.
Referrals:
Naty Ruiz DO [Family Provider] - in one week
Kem Valle MD [Active] - in four to six weeks
Rajiv Painter III, MD [Active] - in one month
Prescriptions:
New
amoxicillin-pot clavulanate 875-125 mg Tablet
1 tab PO Q12 Qty: 15 0RF
Rx Instructions:
11/14/23 last day of antibiotics
Saccharomyces boulardii 250 mg Capsule
250 mg PO DAILY 7 Days Qty: 7 0RF
Continued
ascorbic acid (vitamin C) [Vitamin C] 500 MG tablet
500 mg PO DAILY
rosuvastatin [Crestor] 40 MG tablet
40 mg PO HS
lutein 40 MG capsule
40 mg PO DAILY
cyanocobalamin (vitamin B-12) 1,000 MCG tablet
1,000 mcg PO DAILY
cholecalciferol (vitamin D3) 2,000 UNITS tablet
2,000 units PO DAILY
multivitamin with folic acid [Tab-A-Anne] 1 TABLET tablet
1 tab PO DAILY
aspirin 81 mg Tablet,Chewable
81 mg PO DAILY
furosemide 20 mg tablet
20 mg PO MOWEFR
acetaminophen 325 MG tablet
650 mg PO Q6H PRN (Reason: mild pain/fever)
lisinopril 20 mg tablet
20 mg PO DAILY Qty: 14 0RF
sennosides-docusate sodium [Senna-S] 8.6-50 mg Tablet
1 tab-cap PO DAILY
Discontinued
magnesium oxide 500 MG tablet
500 mg PO DAILY
acetaminophen 325 mg Tablet
650 mg PO BID
Discharge Orders:
Discharge Patient (As Directed); Ordered 11/07/23
Ordered By: Timothy Hawk
Discharge Date and Time
Print Language: YORUBA
--- NOTE | 2023-11-07 14:10 | CM ---
For return to [facility] Today
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
Report; [phone]
Pt signed IMM and transport forms on chart.
[2023-11-07 14:37] VITALS: BP 139/66; BP 96/56; PULSE 69; O2SAT 90
[2023-11-07 15:00] VITALS: BP 109/59
== END 2023-11-07 18:38 | disposition home health service (06) | DRG 871 ==
LOC: 3 WEST ACU 16:19
PROVIDERS: Physician Assistant; ADMITTING PHYSICIAN Hospitalist; ATTENDING PHYSICIAN Internal Medicine; CONSULT PHYSICIAN Internal Medicine Critical Care Medicine; EMERGENCY PHYSICIAN Emergency Medicine; FAMILY PHYSICIAN Hospitalist
DX: A41.9 Sepsis, unspecified organism (principal); J18.9 Pneumonia, unspecified organism; M80.08XA Age-related osteoporosis with current pathological fracture, vertebra(e), initial encounter for fracture; M80.0AXA Age-related osteoporosis with current pathological fracture, other site, initial encounter for fracture; E78.00 Pure hypercholesterolemia, unspecified; I10 Essential (primary) hypertension; H26.9 Unspecified cataract; N20.0 Calculus of kidney; I25.10 Atherosclerotic heart disease of native coronary artery without angina pectoris; I73.9 Peripheral vascular disease, unspecified; R91.1 Solitary pulmonary nodule; K40.90 Unilateral inguinal hernia, without obstruction or gangrene, not specified as recurrent; K59.00 Constipation, unspecified; K64.9 Unspecified hemorrhoids; M19.90 Unspecified osteoarthritis, unspecified site; N40.0 Benign prostatic hyperplasia without lower urinary tract symptoms; Z66 Do not resuscitate; Z88.8 Allergy status to other drugs, medicaments and biological substances; Z79.82 Long term (current) use of aspirin; Z87.891 Personal history of nicotine dependence; Z85.828 Personal history of other malignant neoplasm of skin; Z85.46 Personal history of malignant neoplasm of prostate; Z82.3 Family history of stroke; Z82.49 Family history of ischemic heart disease and other diseases of the circulatory system; Z11.52 Encounter for screening for COVID-19
CPT/HCPCS: 71046; 71260; 80048; 80053; 81003; 83735; 84100; 84443; 84484; 85025; 85027; 87040; 87070; 87149; 87205; 87449; 87811; 87899; 93005; 96365; 96375; 97116; 97162; 97166; 97530; 99285; Q9967

== ENCOUNTER → 2023-11-11 10:20 | Outpatient (REF) | payer OTHER, SELFPAY ==
[2023-11-11 15:08] LABS: TSH 3.65 uIU/ml (0.47-4.68)
== END ==
LOC: OLABMERCHI 10:20
PROVIDERS: ATTENDING PHYSICIAN Nurse Practitioner Gerontology; FAMILY PHYSICIAN Hospitalist
DX: E03.9 Hypothyroidism, unspecified (principal)
CPT/HCPCS: 84439; 84443